=== PATIENT | female | born 1930 | race Caucasian/White ===

== ENCOUNTER 2017-04-28 20:51 | Emergency (ER) | payer MEDICARE, MEDICAID ==
[2014-07-16 12:35] VITALS: Ht 152.4 cm; Wt 92.6 kg
[~2017-04-28] VITALS: Ht 152.4 cm; Wt 92.6 kg
[~2017-04-28 20:51] MED LIST: ABILIF5PT PO; ACE500 PO; ALB17R INH; ALB6.7R INH; AMO500 PO; ASPI-1441 PO; ASPI-715 PO; B 12; BENICAR; BENZ200C38 PO; BUM2 PO; CALC-614 PO; CARBIDOPA PO; CARVEDILOL PO; CEF300 PO; CEFU250 PO; CITA-141 PO; CITA10SO7 PO; CLA500 PO; COM14R INH; CYA1000 PO; DILCD120 PO; DOC100 PO; ENO100I SC; EZET1TAB55 PO; EZET1TAB64 PO; FER325 PO; FLEC50TA PO; FOSI20TA57 PO; FUR40 PO; Furosemide PO; GUAI177L6 PO; GUALA600 PO; GUIDMUD PO; HCTZ25 PO; HYD5L PO; HYDR-4309 PO; HYDR28.425 TOP; HYDR473S4 PO; IBAN150T6 PO; KETO5DRO71 OP; LEVO50 PO; LEVO50TA80 PO; LEVODOPA PO; LORA-629 PO; Lisinopril PO; MET50 PO; METO-1 PO; MULT1CAP59 PO; NEB5 PO; NIFE60TA76 PO; NYSP TOP; OCU PO; OLME1TAB54 PO; OMEP-125 PO; OND4 PO; ONDA4TAB PO; ONDA8TAB94 PO; ONE A DAY VIT PO; OXYGEN INH; OXYM15MI14 ENA; PAN40 PO; POT20 PO; POTA10CA61 PO; POTA20TA85 PO; RIV10 PO; RIVA20TA PO; SUCR1TAB51 PO; SYSTANE ULTRA; SYSTANODPT OP; TRA50 PO; TRAM100T22 PO; VALS320T12 PO; VIT-9 PO; VIT1CAPS32 PO; VIT1CAPS39 PO; VITA-197 PO; WAR5 PO; WARF-18 PO; WARF10TA29 PO; WARF2TAB81 PO; WARF3TAB36 PO; WARF4TAB47 PO; ZADITOR
[2017-04-28 21:03] VITALS: BP 148/77
--- NOTE | 2017-04-28 21:03 | ER Report ---
History and Physical Time Seen By MD: 21:00 HPI/ROS CHIEF COMPLAINT: Right arm redness HISTORY OF PRESENT ILLNESS: 86-year-old female presents ambulatory to the ER complaining of burning pain in the lateral aspect of her right elbow. Patient notes there is a red rash since developed over the last 2-3 days. There are some vesicles noted in the area of this. Patient describes a burning pain. She 's had no fever or chills. She is unsure whether she is receive the zoster vaccine. Patient recalls no injury or open wounds. Patient describes a burning pain. She notes some itching. Allergies: Coded Allergies: milk (Verified Allergy, Intermediate, UPSET STOMACH, 04/28/17) codeine (Verified Adverse Reaction, Intermediate, MADE HER CONFUSED, WEAK POOR BALANCE, 04/28/17) Home Meds Active Scripts Cephalexin 500 Mg Tab (KEFLEX 500 MG TAB) 500 Mg Tablet, 500 MG PO TID for treatment of cellulitis, #20 TAB Prov:EVERETT AYON DO 04/28/17 Valacyclovir Hcl (VALTREX) 1,000 Mg Tablet, 1000 MG PO BID for treatment of shingles, #14 Prov:EVERETT AYON DO 04/28/17 Hydrocortisone (Hydrocortisone) 1 % Cream..g., 1 DAJUAN TOP BID, #1 TUBE Prov:BRITTANY PFEIFFER CASE PICKER 06/21/16 [Furosemide] 40 MG TAB No Conflict Check, 40 MG PO QDAY, #30 TAB Prov:IRVIN KELLEY DO 07/21/14 Reported Medications Aripiprazole (ABILIFY) 5 Mg Tablet, 5 MG PO QDAY, #10 TAB 04/28/17 Potassium Chloride (KLOR-CON) 20 Meq Packet, 20 MEQ PO QDAY, PACKET 04/28/17 Diltiazem Hcl (TAZTIA XT) 120 Mg Capsule.er, 120 MG PO 04/28/17 Loratadine (CLARITIN) 10 Mg Capsule, 10 MG PO, CAPSULE 04/28/17 Citalopram Hydrobromide (CITALOPRAM HBR) 40 Mg Tablet, 40 MG PO QDAY, #5 TAB TAKE 1 TABLET BY MOUTH EVERY DAY 07/15/14 Sucralfate (SUCRALFATE) 1 Gm Tablet, 1 GM PO BID 02/23/14 Cyanocobalamin (Vitamin B-12) (VITAMIN B-12) 1,000 Mcg Tablet, 1000 MCG PO DAILY 02/23/14 Omeprazole (OMEPRAZOLE) 20 Mg Capsule.dr, 1 CAP PO QDAY TAKE ONE CAPSULE BY MOUTH ONCE A DAY 02/23/14 Oxygen (Oxygen) 2 L Inha, 4 L INH CONTINUOUSLY, 0 Refills 04/05/11 Metoprolol Tartrate (Lopressor) 50 Mg Tablet, 50 MG PO BID, 0 Refills 04/05/11 Levothyroxine Sodium (Levothyroxine Sodium) 50 Mcg Tablet, 50 MCG PO DAILY, 0 Refills DO NOT TAKE THIS MEDICATION WITHIN 4 HOURS OF FERROUS SULFATE 04/05/11 Ferrous Sulfate (Ferrous Sulfate) 325 Mg Tab, 325 MG PO BIDBS, [address] ONE DROP IN EACH EYE DAILY 04/05/11 Aspirin (Aspirin) 81 Mg Tablet.dr, 81 MG PO DAILY, 0 Refills 04/05/11 Discontinued Reported Medications Rivaroxaban (XARELTO 10 MG TAB (OR EQUIV)) 10 Mg Tablet, 15 MG PO QPM, TAB 06/21/16 Vit C/[place] Ac/Lut/Copper/Znox (PRESERVISION LUTEIN SOFTGEL) 1 Each Capsule, 1 EACH PO DAILY, CAPSULE 02/23/14 Acetaminophen (Tylenol) 500 Mg Tab, 650 MG PO Q6H, 0 Refills TAKE NEEDED FOR PAIN 04/05/11 Albuterol/Ipratropium (Combivent) 14.7 Gm Inh, 2 PUFF INH QID, 0 Refills 1-2 PUFFS 04/05/11 Discontinued Scripts Oxymetazoline Hcl (AFRIN) 15 Ml Mist, 2 SPRAYS [place]O BID Y for nosebleed, #1 BOTTLE Prov:BRITTANY PFEIFFER NP 06/21/16 [Levodopa/Carbidopa] 1 EACH TAB No Conflict Check, 1 EACH PO TID, #90 TAB Prov:IRVIN KELLEY DO 07/21/14 [Lisinopril] 5 MG TAB No Conflict Check, 5 MG PO QDAY, #30 TAB Prov:IRVIN KELLEY DO 07/21/14 Past Medical/Surgical History Past medical history: Macular degeneration, wears glasses, hard of hearing, pacemaker, DVT, frequent pneumonia, hypoxia on 2 L at night. History of H. pylori, arthritis. Past surgical history bilateral cataract extraction, pacemaker placement,: Heart repaired, history of spitting at age 25. Bone spur removal, carpal tunnel surgery bilaterally, fractured left ankle Reviewed Nurses Notes: Yes Old Medical Records Reviewed: Yes Hx Smoking: No Smoking Status: Never Smoker Exposure to Second Hand Smoke?: No Hx Substance Use Disorder: No Hx Alcohol Use: No Constitutional Vital Sign - Last 24 Hours 04/28/17 21:03 Temp 97.8 Pulse 59 Resp 16 B/P (MAP) 148/77 Pulse Ox 98 O2 Delivery Nasal Cannula Physical Exam General appearance: Mild distress Respiratory: Chest is non tender, lungs are clear to auscultation. Cardiac: Regular rate and rhythm Extremities: Examination of the right arm reveals a very large erythematous area , approximate 1070 years by 5 cm just lateral to the antecubital area on her right arm. There are some small vesicles that are scabbed over, which would suggest herpes zoster, distal neurovascular function intact DIFFERENTIAL DIAGNOSIS: After history and physical exam differential diagnosis was considered for cellulitis, herpes zoster, contact dermatitis, eczema. Eczema Medical Decision Making ED Course/Re-evaluation ED Course Patient was admitted to an examination room. H&P was done. The differential diagnoses was considered. Patient with a grossly erythematous area right lateral elbow region. There are some vesicles in the area. It appears to be in a dermatomal distribution consistent with herpes zoster. There could be a secondary bacterial cellulitis. Patient be treated with Valtrex and Keflex. She is offered medication for pain, but declines. She describes a burning pain which would go with herpes zoster. She is advised to apply heating pad to the affected area. Patient advised to follow-up with primary care if unimproved in 3-5 days. Decision to Disposition Date: Apr 28, 2017 Decision to Disposition Time: 21:25 Depart Departure Latest Vital Signs Vital Signs Date Time Temp Pulse Resp B/P (MAP) Pulse Ox O2 Delivery O2 Flow Rate FiO2 04/28/17 21:03 97.8 59 16 148/77 98 Nasal Cannula Impression: Primary Impression: Herpes zoster Additional Impression: Cellulitis of right arm Condition: Improved Disposition: HOME OR SELF-CARE Referrals: IRVIN CRANE MD (PCP) New Scripts Cephalexin 500 Mg Tab (KEFLEX 500 MG TAB) 500 Mg Tablet 500 MG PO TID for treatment of cellulitis, #20 TAB Prov: EVERETT AYON DO 04/28/17 Valacyclovir Hcl (VALTREX) 1,000 Mg Tablet 1000 MG PO BID for treatment of shingles, #14 Prov: EVERETT AYON DO 04/28/17 Patient Instructions: Cellulitis (ED), Shingles (ED) Additional Instructions: Apply hot compresses or heating pad to your right arm Take ibuprofen as needed for pain relief Follow-up with your primary care if unimproved. On Sunday Problem Qualifiers Primary Impression: Herpes zoster Herpes zoster complications: without complications Qualified Codes: B02.9 - Zoster without complications EVERETT AYON DO Apr 28, 2017 21:03
[2017-04-28] MEDS ORDERED: oxyCODONE/ACETAMIN 5/325MG TH 2 TAB/BOTTLE PO ONE (21:20)
[2017-04-28] MEDS ORDERED: valACYclovir HCL 500 MG TAB PO ONE (21:20)
[2017-04-28] MEDS ORDERED: CEPHALEXIN MONO 500 MG CAP PO ONE (21:20)
[2017-04-28] MEDS ORDERED: LORA10CA3 PO (21:23)
[2017-04-28] MEDS ORDERED: DILT-109 PO (21:24)
[2017-04-28] MEDS ORDERED: POTA20PA10 PO (21:27)
[2017-04-28] MEDS ORDERED: CEPH500T7 PO (21:33)
[2017-04-28] MEDS ORDERED: VALA100062 PO (21:33)
[2017-04-28] MEDS ORDERED: ABILIF5PT PO (21:55)
== END 2017-04-28 21:45 | disposition home or self-care (01) ==
LOC: ER 21:01
DX: B02.9 Zoster without complications (principal); L03.113 Cellulitis of right upper limb
CPT/HCPCS: 99282; A9270

== ENCOUNTER 2017-06-03 17:43 | Emergency (ER) | payer MEDICARE, MEDICAID ==
[2014-07-16 12:35] VITALS: Ht 152.4 cm; Wt 92.6 kg
[~2017-06-03] VITALS: Ht 152.4 cm; Wt 92.6 kg
[~2017-06-03 17:43] MED LIST changes: -CARB-94 PO; -RIVA15TA PO; -TRAM-420 PO; +WARF-18 PO; -WARF5TAB23 PO
--- NOTE | 2017-06-03 18:10 | ER Report ---
History and Physical Time Seen By MD: 18:09 Hx. of Stated Complaint: L side chest and neck pain, can hardly touch herself" a little sob, nausea, dizzy starting at noon today HPI/ROS CHIEF COMPLAINT: Left neck, chest, shoulder pain HISTORY OF PRESENT ILLNESS: 86-year-old female patient presents to emergency room with complaint of left neck, chest and shoulder pain. Patient states that the pain started yesterday. She states that she's had no shortness of breath, she denies having any nausea, vomiting or diarrhea. Patient states that she has not taken any medication for this. She states that she does have a history of heart disease last time she had something similar to this she was instructed by her stationary engineer refrigeration come in for evaluation. She states that she did have some improvement with aspirin and nitroglycerin. Patient states that the day prior to yesterday she woke up and she was falling out of bed. She states she does have bruises to the right hip. She states that she did wake up and was able to catch herself and help break her fall. REVIEW OF SYSTEMS: Respiratory: No cough, no dyspnea. Cardiovascular: As noted above Gastrointestinal: No vomiting, no abdominal pain. Musculoskeletal: As noted above Allergies: Coded Allergies: milk (Verified Allergy, Intermediate, UPSET STOMACH, 04/28/17) codeine (Verified Adverse Reaction, Intermediate, MADE HER CONFUSED, WEAK POOR BALANCE, 04/28/17) Home Meds Active Scripts Tramadol Hcl (TRAMADOL HCL) 50 Mg Tablet, 50 MG PO Q4-6H, #10 TAB Prov:VIVIANA WHITTEN 06/03/17 Hydrocortisone (Hydrocortisone) 1 % Cream..g., 1 DAJUAN TOP BID, #1 TUBE Prov:BRITTANY PFEIFFER MEDART OPERATOR 06/21/16 [Furosemide] 40 MG TAB No Conflict Check, 40 MG PO QDAY, #30 TAB Prov:IRVIN KELLEY DO 07/21/14 Reported Medications Carbidopa/Levodopa (CARBIDOPA-LEVODOPA 25-100 TAB) 1 Each Tablet, 1 EACH PO TID 06/03/17 Rivaroxaban 15 Mg (XARELTO 15 MG) 15 Mg Tablet, 15 MG PO, TAB 06/03/17 Potassium Chloride (KLOR-CON) 20 Meq Packet, 20 MEQ PO BID, PACKET 06/03/17 Aripiprazole (ABILIFY) 5 Mg Tablet, 5 MG PO QDAY, #10 TAB 04/28/17 Diltiazem Hcl (TAZTIA XT) 120 Mg Capsule.er, 120 MG PO 04/28/17 Citalopram Hydrobromide (CITALOPRAM HBR) 40 Mg Tablet, 40 MG PO QDAY, #5 TAB TAKE 1 TABLET BY MOUTH EVERY DAY 07/15/14 Sucralfate (SUCRALFATE) 1 Gm Tablet, 1 GM PO BID 02/23/14 Cyanocobalamin (Vitamin B-12) (VITAMIN B-12) 1,000 Mcg Tablet, 1000 MCG PO DAILY 02/23/14 Omeprazole (OMEPRAZOLE) 20 Mg Capsule.dr, 1 CAP PO QDAY TAKE ONE CAPSULE BY MOUTH ONCE A DAY 02/23/14 Oxygen (Oxygen) 2 L Inha, 4 L INH CONTINUOUSLY, 0 Refills 04/05/11 Metoprolol Tartrate (Lopressor) 50 Mg Tablet, 50 MG PO BID, 0 Refills 04/05/11 Levothyroxine Sodium (Levothyroxine Sodium) 50 Mcg Tablet, 50 MCG PO DAILY, 0 Refills DO NOT TAKE THIS MEDICATION WITHIN 4 HOURS OF FERROUS SULFATE 04/05/11 Ferrous Sulfate (Ferrous Sulfate) 325 Mg Tab, 325 MG PO BIDBS, [address] ONE DROP IN EACH EYE DAILY 04/05/11 Aspirin (Aspirin) 81 Mg Tablet.dr, 81 MG PO DAILY, 0 Refills 04/05/11 Discontinued Reported Medications Potassium Chloride (KLOR-CON) 20 Meq Packet, 20 MEQ PO QDAY, PACKET 04/28/17 Loratadine (CLARITIN) 10 Mg Capsule, 10 MG PO, CAPSULE 04/28/17 Discontinued Scripts Cephalexin 500 Mg Tab (KEFLEX 500 MG TAB) 500 Mg Tablet, 500 MG PO TID for treatment of cellulitis, #20 TAB Prov:EVERETT AYON DO 04/28/17 Valacyclovir Hcl (VALTREX) 1,000 Mg Tablet, 1000 MG PO BID for treatment of shingles, #14 Prov:EVERETT AYON DO 04/28/17 Past Medical/Surgical History Patient has a past medical history of seizures, angina, irregular heartbeat, CHF , DVT, hypertension, pneumonia, H. pylori, cholecystitis, liver disease, arthritis, ankle fracture, macular degeneration, hypothyroidism, anticoagulant therapy, depression. Patient has a surgical history of cholecystectomy, pacemaker placement,: Heart repaired, appendectomy, hysterectomy, pulse removed, carpal tunnel release bilaterally, bilateral cataract surgery. Patient has a family medical history of cancer, stroke, diabetes. Reviewed Nurses Notes: Yes Hx Smoking: No Smoking Status: Never Smoker Exposure to Second Hand Smoke?: No Hx Substance Use Disorder: No Hx Alcohol Use: No Constitutional Vital Sign - Last 24 Hours 06/03/17 06/03/17 06/03/17 06/03/17 17:43 17:45 17:45 17:58 Temp 99.0 Pulse ??? 63 66 Resp 20 17 B/P (MAP) 119/71 119/71 (87) Pulse Ox 94 96 O2 Delivery Nasal Cannula 06/03/17 06/03/17 06/03/17 06/03/17 18:00 18:13 18:20 18:20 Pulse 59 Resp 15 B/P (MAP) 122/71 (88) 113/77 (89) Pulse Ox 95 O2 Flow Rate 4.0 06/03/17 06/03/17 06/03/17 18:28 18:40 18:43 Pulse 60 58 Resp 11 14 B/P (MAP) 134/86 (102) Pulse Ox 93 93 Physical Exam General Appearance: The patient is alert, has no immediate need for airway protection and no current signs of toxicity. Respiratory: Chest is tender along the upper chest, trapezius muscles., lungs are clear to auscultation. Cardiac: regular rate and rhythm Gastrointestinal: Abdomen is soft and non tender, no masses, bowel sounds normal. Musculoskeletal: Neck: Neck is supple and non tender. Extremities have full range of motion and are non tender. Skin: No rashes or lesions. DIFFERENTIAL DIAGNOSIS: After history and physical exam differential diagnosis was considered for chest pain including but not limited to myocardial ischemia, pericarditis pulmonary embolus, chest wall pain, pleural inflammation and pulmonary infectious causes. Included differential is a shoulder strain secondary to try to catch herself from falling out of bed. Medical Decision Making Data Points Result Diagram: 06/03/17191006/03/171910 Laboratory Hematology Test 06/03/17 18:25 06/03/17 19:11 Influenza Virus Type A (PCR) Negative (NEGATIVE) Influenza Virus Type B (PCR) Negative (NEGATIVE) Red Blood Count 3.23 M/uL (4.17-5.56) Mean Corpuscular Volume 106.5 fL (80.0-96.0) Mean Corpuscular Hemoglobin 36.9 pg (26.0-33.0) Mean Corpuscular Hemoglobin Concent 34.6 g/dL (32.0-36.0) Red Cell Distribution Width 13.3 % (11.5-14.5) Mean Platelet Volume 8.7 fL (7.2-11.1) Neutrophils (%) (Auto) 67.0 % (39.4-72.5) Lymphocytes (%) (Auto) 18.8 % (17.6-49.6) Monocytes (%) (Auto) 12.6 % (4.1-12.4) Eosinophils (%) (Auto) 1.0 % (0.4-6.7) Basophils (%) (Auto) 0.6 % (0.3-1.4) Nucleated RBC Relative Count (auto) 0.0 /100WBC Neutrophils # (Auto) 6.3 K/uL (2.0-7.4) Lymphocytes # (Auto) 1.8 K/uL (1.3-3.6) Monocytes # (Auto) 1.2 K/uL (0.3-1.0) Eosinophils # (Auto) 0.1 K/uL (0.0-0.5) Basophils # (Auto) 0.1 K/uL (0.0-0.1) Nucleated RBC Absolute Count (auto) 0.00 K/uL Sodium Level 138 mmol/L (137-145) Potassium Level 4.2 mmol/L (3.5-5.0) Chloride Level 99 mmol/L (98-107) Carbon Dioxide Level 29 mmol/L (22-31) Blood Urea Nitrogen 20 mg/dl (7-18) Creatinine 1.10 mg/dl (0.52-1.04) Glomerular Filtration Rate Calc 47.0 Random Glucose 90 mg/dl (75-110) Calcium Level 8.6 mg/dl (8.4-10.2) Total Bilirubin 0.4 mg/dl (0.2-1.3) Aspartate Amino Transf (AST/SGOT) 22 U/L (0-35) Alanine Aminotransferase (ALT/SGPT) 21 U/L (0-56) Alkaline Phosphatase 102 U/L (0-126) Troponin I < 0.012 ng/ml B-Type Natriuretic Peptide 539 pg/ml (0-100) Total Protein 8.0 gm/dl (6.3-8.2) Albumin 3.9 g/dl (3.5-5.0) Chemistry Test 06/03/17 18:25 06/03/17 19:11 Influenza Virus Type A (PCR) Negative (NEGATIVE) Influenza Virus Type B (PCR) Negative (NEGATIVE) White Blood Count 9.4 k/uL (4.5-11.0) Red Blood Count 3.23 M/uL (4.17-5.56) Hemoglobin 11.9 g/dL (12.0-16.0) Hematocrit 34.4 % (34.0-47.0) Mean Corpuscular Volume 106.5 fL (80.0-96.0) Mean Corpuscular Hemoglobin 36.9 pg (26.0-33.0) Mean Corpuscular Hemoglobin Concent 34.6 g/dL (32.0-36.0) Red Cell Distribution Width 13.3 % (11.5-14.5) Platelet Count 170 K/uL (150-450) Mean Platelet Volume 8.7 fL (7.2-11.1) Neutrophils (%) (Auto) 67.0 % (39.4-72.5) Lymphocytes (%) (Auto) 18.8 % (17.6-49.6) Monocytes (%) (Auto) 12.6 % (4.1-12.4) Eosinophils (%) (Auto) 1.0 % (0.4-6.7) Basophils (%) (Auto) 0.6 % (0.3-1.4) Nucleated RBC Relative Count (auto) 0.0 /100WBC Neutrophils # (Auto) 6.3 K/uL (2.0-7.4) Lymphocytes # (Auto) 1.8 K/uL (1.3-3.6) Monocytes # (Auto) 1.2 K/uL (0.3-1.0) Eosinophils # (Auto) 0.1 K/uL (0.0-0.5) Basophils # (Auto) 0.1 K/uL (0.0-0.1) Nucleated RBC Absolute Count (auto) 0.00 K/uL Glomerular Filtration Rate Calc 47.0 Calcium Level 8.6 mg/dl (8.4-10.2) Total Bilirubin 0.4 mg/dl (0.2-1.3) Aspartate Amino Transf (AST/SGOT) 22 U/L (0-35) Alanine Aminotransferase (ALT/SGPT) 21 U/L (0-56) Alkaline Phosphatase 102 U/L (0-126) Troponin I < 0.012 ng/ml B-Type Natriuretic Peptide 539 pg/ml (0-100) Total Protein 8.0 gm/dl (6.3-8.2) Albumin 3.9 g/dl (3.5-5.0) EKG/Imaging EKG Interpretation 12 lead EKG: Rhythm: normal sinus rhythm with a ventricular rate of 62 bpm [place]: Left axis deviation QRS: normal ST segments: Nonspecific T-wave abnormality Imaging CHEST: Indication: Chest pain. Technique: Frontal and lateral views were obtained. 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 No acute skeletal deformity is identified. Heart and mediastinum: Stable, allowing for differences in inspiratory effort. The cardiac pacemaker leads appear unchanged. Lung saldivar: Hypoexpanded. There is chronic linear fibrotic opacity at the left base. No acute parenchymal process is identified. There are no signs of vascular congestion. Pleural spaces: No evidence of effusion or pneumothorax. Impression: No acute interval change. Report Dictated By: Rush Butler MD at 06/03/2017 8:03 PM Report E-Signed By: Rush Butler MD at 06/03/2017 8:10 PM ED Course/Re-evaluation ED Course Patient was admitted to exam room, history and physical were obtained. Differential diagnoses were considered. On examination patient had tenderness to the left trapezius, left side of the neck, left upper chest. A CBC, CMP, troponin, EKG, chest x-ray, BNP were done. Lab results were unremarkable, troponin was negative, EKG showed a normal sinus rhythm with left axis deviation , chest x-ray was normal. BNP was slightly elevated at 500. Patient is taking her Lasix. We'll go ahead and hold off and have her continue with her Lasix. I would like her follow-up with primary care provider in the next week. I discussed the findings of the x-ray and the lab tests. I believe that the pain is likely related to the muscles of the shoulder neck. We will go ahead and discharge patient home. She will be given a limited supply of tramadol. She is given a dose tonight. She is return to the emergency room with any worsening of her condition. The patient and her family verbalized understanding and agreement with plan. Decision to Disposition Date: Jun 03, 2017 Decision to Disposition Time: 20:28 Depart Departure Latest Vital Signs Vital Signs Date Time Temp Pulse Resp B/P (MAP) Pulse Ox O2 Delivery O2 Flow Rate FiO2 06/03/17 18:43 58 14 93 06/03/17 18:40 134/86 (102) 06/03/17 18:20 4.0 06/03/17 17:45 99.0 Nasal Cannula Impression: Primary Impression: Chest pain Condition: Improved Disposition: HOME OR SELF-CARE Referrals: IRVIN CRANE MD (PCP) New Scripts Tramadol Hcl (TRAMADOL HCL) 50 Mg Tablet 50 MG PO Q4-6H, #10 TAB Prov: VIVIANA WHITTEN 06/03/17 Patient Instructions: Chest Wall Pain (ED) Additional Instructions: Limit activity by pain. You may apply a heating pad to the shoulder and neck. Take the medication as needed for pain. Follow up with your primary care provider in the next week. Return to the ER if condition worsens. You may take Tylenol as needed for pain as well. Problem Qualifiers Primary Impression: Chest pain Chest pain type: other chest pain Qualified Codes: R07.89 - Other chest pain VIVIANA WHITTEN Jun 03, 2017 18:10
--- NOTE | 2017-06-03 18:59 | EKG ---
FACILITY: [facility] - [place] PATIENT NAME: BRIGIDA LOWERY : [id number] MR: [id number] V: [id number] EXAM DATE: ORDERING PHYSICIAN: VIVIANA WHITTEN TECHNOLOGIST: ALEXX Test Reason : CP Blood Pressure : / mmHG Vent. Rate : 062 BPM Atrial Rate : 062 BPM P-R Int : 194 ms QRS Dur : 098 ms QT Int : 446 ms P-R-T Axes : 059 -30 076 degrees QTc Int : 452 ms Normal sinus rhythm Left axis deviation T inversion consistent with septal ischemia vs normal variant When compared with ECG of 08-SEP-2014 20:10, Sinus rhythm has replaced a ventricular paced rhythm Confirmed by ANIL MANCIA ([id number]) on 06/03/2017 9:01:12 PM Referred By: KEON Confirmed By:ANIL MANCIA
[2017-06-03 19:16] LABS: PLATELET COUNT, AUTOMATED 170 K/uL (150-450)
[2017-06-03] MEDS ORDERED: POTA20PA10 PO (19:35)
[2017-06-03] MEDS ORDERED: RIVA15TA PO (19:37)
[2017-06-03] MEDS ORDERED: CARB-94 PO (19:38)
--- NOTE | 2017-06-03 20:14 | RADIOLOGY IMAGING REPORT ---
FACILITY: [facility] - [place] PATIENT NAME: Sangeeta Esparza : 1930 MR: [id number] V: [id number] EXAM DATE: ORDERING PHYSICIAN: VIVIANA WHITTEN TECHNOLOGIST: Location: [facility] Patient: Sangeeta Esparza : 1930 Visit/Account:[id number] Date of Sevice: 06/03/2017 CHEST: Indication: Chest pain. Technique: Frontal and lateral views were obtained. 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 No acute skeletal deformity is identified. Heart and mediastinum: Stable, allowing for differences in inspiratory effort. The cardiac pacemaker leads appear unchanged. Lung saldivar: Hypoexpanded. There is chronic linear fibrotic opacity at the left base. No acute parenc hymal process is identified. There are no signs of vascular congestion. Pleural spaces: No evidence of effusion or pneumothorax. Impression: No acute interval change. Report Dictated By: Rush Butler MD at 06/03/2017 8:03 PM Report E-Signed By: Rush Butler MD at 06/03/2017 8:10 PM WSN:[id number]
[2017-06-03] MEDS ORDERED: traMADol 50 MG TAB PO ONE (20:15)
[2017-06-03] MEDS ORDERED: TRAM-420 PO (20:29)
[2017-06-03 20:40] VITALS: BP 131/75
== END 2017-06-03 20:58 | disposition home or self-care (01) ==
LOC: ER 17:50
DX: R07.89 Other chest pain (principal)
CPT/HCPCS: 71046; 83880; 84484; 85025; 87502; 93005; 99284; A9270; 82040; 82247; 82310; 82374; 82435; 82565; 82947; 84075; 84132; 84155; 84295; 84450; 84460; 84520

== ENCOUNTER → 2017-06-03 | Outpatient (CLI) | payer MEDICARE, MEDICAID ==
[2014-07-16 12:35] VITALS: BMI 41.7
[~2017-06-03] MED LIST changes: +CARB-94 PO; +CEPH500T7 PO; +DILT-109 PO; +LORA10CA3 PO; +POTA20PA10 PO; +RIVA15TA PO; +TRAM-420 PO; +VALA100062 PO; -WARF-18 PO; +WARF5TAB23 PO
== END ==
LOC: AMB 17:24
PROVIDERS: ATTEND Nurse Practitioner
DX: R07.9 Chest pain, unspecified (principal); M54.2 Cervicalgia; M79.602 Pain in left arm
CPT/HCPCS: A0425; A0427

== ENCOUNTER → 2017-09-13 | Outpatient (CLI) | payer MEDICARE, MEDICAID ==
[2014-07-16 12:35] VITALS: BMI 41.7
[~2017-09-13] MED LIST changes: +ASCO-246 PO; +CARB-94 PO; +CITA-145 PO; +FERR142T2 PO; +FERR325T24 PO; +FURO-47 PO; +LISI5TAB25 PO; +OXYGENHOME INH; +POTA20TA94 PO; +RANI-318 PO; +RIVA15TA PO; +TRAM-420 PO; +TRIA15CR40 TP; +VIT1CAPS34 PO; -WARF-18 PO; +WARF2TAB13 PO; -WARF2TAB81 PO; +WARF5TAB23 PO
[2017-09-13 11:01] LABS: PLATELET COUNT, AUTOMATED 216 K/uL (150-450)
== END ==
LOC: LAB 10:07
PROVIDERS: ATTEND Family Medicine
DX: E53.8 Deficiency of other specified B group vitamins (principal); I10 Essential (primary) hypertension; E61.1 Iron deficiency; E03.9 Hypothyroidism, unspecified
CPT/HCPCS: 36415; 82040; 82247; 82310; 82374; 82435; 82565; 82607; 82728; 82947; 84075; 84132; 84155; 84295; 84443; 84450; 84460; 84520; 85025

== ENCOUNTER 2017-09-30 18:51 | Observation (INO) | payer MEDICARE, MEDICAID ==
[~2017-09-30] VITALS: Ht 152.4 cm; Wt 87.2 kg
[~2017-09-30 18:51] MED LIST changes: -DICL100G39 TP; -METO-253 PO
--- NOTE | 2017-09-30 18:59 | ER Report ---
History and Physical Time Seen By MD: 18:54 HPI/ROS CHIEF COMPLAINT: Back pain HISTORY OF PRESENT ILLNESS: 87-year-old female brought in by EMS from home complaining of back pain. Patient required Zofran and 50 g of fentanyl IV prior to transfer. On arrival. She appears comfortable. She's complaining of severe lower back pain with radiation to her right lower extremity. Patient notes no incontinence. She states she fell 4 weeks ago. She notes no fever, chills or dysuria. She was seen by her primary care physician Dr Jenkins, a few days ago. Her medical history is reviewed in that note. She lives with her son who sleeps in the basement. Patient denies chest pain or shortness of breath. Patient denies recent illness. REVIEW OF SYSTEMS: Respiratory: No cough, no dyspnea. Cardiovascular: No chest pain, no palpitations. Gastrointestinal: No vomiting, no abdominal pain. Musculoskeletal: As above Allergies: Coded Allergies: milk (Verified Allergy, Intermediate, UPSET STOMACH, 04/28/17) codeine (Verified Adverse Reaction, Intermediate, MADE HER CONFUSED, WEAK POOR BALANCE, 04/28/17) Home Meds Active Scripts Triamcinolone Acetonide 0.1% Cr 15 Gm Tube (TRIAMCINOLONE ACETONIDE 0.1% CREAM) 15 Gm Cream..g., 1 DAJUAN TP BID Y for RASH for 14 Days, #1 TUBE Prov:FREDI JENKINS MD 09/27/17 Carbidopa/Levodopa (CARBIDOPA-LEVODOPA 25-100 TAB) 1 Each Tablet, 1 EACH PO BID for 90 Days, #270 TAB Prov:FREDI JENKINS MD 09/27/17 Lisinopril (LISINOPRIL) 5 Mg Tablet, 1 TAB PO DAILY for 90 Days, #90 TAB 4 Refills Prov:FREDI JENKINS MD 09/25/17 Furosemide (FUROSEMIDE) 40 Mg Tablet, 1 TAB PO BID for 90 Days, #180 TAB Prov:FREDI JENKINS MD 09/25/17 Ranitidine Hcl (RANITIDINE HCL) 150 Mg Tablet, 150 MG PO QHS for 90 Days, #90 TAB 3 Refills Prov:FREDI JENKINS MD 09/13/17 Citalopram Hydrobromide (CITALOPRAM HBR) 20 Mg Tablet, 20 MG PO QDAY for 90 Days , #90 TAB 3 Refills Prov:FREDI JENKINS MD 09/13/17 Reported Medications Ferrous Sulfate (IRON) 325 Mg Tablet, 1 TAB PO DAILY 09/13/17 Potassium Chloride (POTASSIUM CHLORIDE) 20 Meq Tab.er.prt, 1 TAB PO BID 09/13/17 Ascorbic Acid (VITAMIN C WITH BETO HIPS) 500 Mg Tablet, 1 TAB PO DAILY 08/31/17 Vit A/Vit C/Vit E/Zinc/Copper (PRESERVISION AREDS SOFTGEL) 1 Each Capsule, 1 EACH PO BID, CAPSULE 08/31/17 Oxygen (OXYGEN) Inha, 4 L INH DAILY, L Continuous 08/31/17 Rivaroxaban 15 Mg (XARELTO 15 MG) 15 Mg Tablet, 1 TAB PO QPM 06/03/17 Metoprolol Tartrate (Lopressor) 50 Mg Tablet, 1 TAB PO BID 04/05/11 Levothyroxine Sodium (Levothyroxine Sodium) 50 Mcg Tablet, 1 TAB PO DAILY, 0 Refills DO NOT TAKE THIS MEDICATION WITHIN 4 HOURS OF FERROUS SULFATE 04/05/11 Past Medical/Surgical History Past Medical History Reviewed: Yes Neurologic: Reports hx of: parkinson's disease Cardiovascular: Reports hx of: atrial fibrillation CHF hypertension other CV history (Pacemaker) Respiratory: Reports hx of: sleep apnea other respiratory history (Chor Pulm) Psychiatric: Reports hx of: depression Cardiovascular: Reports hx of: pacemaker Gastrointestinal: Reports hx of: cholecystectomy Gynecologic: Reports hx of: hysterectomy Musculoskeletal: Reports hx of: carpal tunnel release Reviewed Nurses Notes: Yes Old Medical Records Reviewed: Yes Constitutional Vital Sign - Last 24 Hours 09/30/17 09/30/17 09/30/17 09/30/17 18:59 19:00 19:15 19:17 Temp 97.7 Pulse 89 85 104 Resp 20 B/P (MAP) 115/76 126/74 (91) Pulse Ox 95 98 98 O2 Delivery Nasal Cannula O2 Flow Rate 4.0 09/30/17 09/30/17 09/30/17 09/30/17 19:30 19:45 20:00 20:15 Pulse 100 86 ??? 87 B/P (MAP) ???/??? (1665) ???/??? (1664) Pulse Ox 96 98 100 09/30/17 09/30/17 09/30/17 09/30/17 20:29 20:45 21:00 21:15 Pulse 95 81 ??? Resp 12 21 B/P (MAP) 130/82 (98) 137/76 (96) Pulse Ox 98 98 09/30/17 09/30/17 09/30/17 09/30/17 21:30 21:45 22:00 22:15 Pulse 81 79 85 ??? B/P (MAP) ???/??? (1665) Pulse Ox 100 99 100 09/30/17 09/30/17 09/30/17 09/30/17 22:30 22:45 23:00 23:15 Pulse ? 92 85 Resp 21 11 13 Pulse Ox 93 83 94 09/30/17 09/30/17 23:30 23:45 Pulse ??? 83 Pulse Ox 99 Physical Exam General Appearance: The patient is alert, has no immediate need for airway protection and no current signs of toxicity.. Vital signs stable, afebrile, pulse ox baseline HEENT: Pupils equal and round no injection. Oropharynx no redness or exudate, mucous. Membranes are moist Respiratory: Chest is non tender, lungs are clear to auscultation. Cardiac: irregularregular rate and rhythm, Gastrointestinal: Abdomen is soft and non tender, no masses, bowel sounds normal. Musculoskeletal: Neck: Neck is supple and non tender. Back: Mild tenderness in the right lumbar paraspinous muscles in the SI joint Extremities have full range of motion and are non tender. Negative straight- leg raise bilaterally, patient can lift both of her legs without difficulty by herself Skin: No rashes or lesions. DIFFERENTIAL DIAGNOSIS: After history and physical exam differential diagnosis was considered for back pain including but not limited to muscular pain, herniated disc, spine fracture, intra-abdominal causes and urinary tract infection. Medical Decision Making Data Points Result Diagram: 10/02/17 0550 10/02/17 0550 Laboratory Hematology Test 09/30/17 19:23 09/30/17 20:34 Erythrocyte Sedimentation Rate 50 mm/HOUR (0-30) Lactate 1.1 mmol/L (0.7-2.1) Troponin I < 0.012 ng/ml C-Reactive Protein < 0.5 mg/dl (<1.0) Amylase Level 59 U/L (0-110) Urine Color Straw Urine Clarity Clear Urine pH 6.0 pH (4.8-9.5) Urine Specific [place] 1.008 Urine Protein Negative mg/dL (NEGATIVE) Urine Glucose (UA) Negative mg/dL (NEGATIVE) Urine Ketones Negative mg/dL (NEGATIVE) Urine Blood Negative (NEGATIVE) Urine Nitrite Negative (NEGATIVE) Urine Bilirubin Negative (NEGATIVE) Urine Urobilinogen Negative mg/dL (0.2-1.9) Urine Leukocyte Esterase Negative (NEGATIVE) Urine RBC <1 /HPF (0-2/HPF) Urine WBC None /HPF (0-5/HPF) Urine Squamous Epithelial Cells None /LPF (NONE-FEW) Urine Bacteria Negative /HPF (NONE-FEW) Urine Hyaline Casts Many /LPF (NONE-FEW) Urine Mucus None /HPF (NONE-FEW) Chemistry Test 09/30/17 19:23 09/30/17 20:34 Erythrocyte Sedimentation Rate 50 mm/HOUR (0-30) Lactate 1.1 mmol/L (0.7-2.1) Troponin I < 0.012 ng/ml C-Reactive Protein < 0.5 mg/dl (<1.0) Amylase Level 59 U/L (0-110) Urine Color Straw Urine Clarity Clear Urine pH 6.0 pH (4.8-9.5) Urine Specific [place] 1.008 Urine Protein Negative mg/dL (NEGATIVE) Urine Glucose (UA) Negative mg/dL (NEGATIVE) Urine Ketones Negative mg/dL (NEGATIVE) Urine Blood Negative (NEGATIVE) Urine Nitrite Negative (NEGATIVE) Urine Bilirubin Negative (NEGATIVE) Urine Urobilinogen Negative mg/dL (0.2-1.9) Urine Leukocyte Esterase Negative (NEGATIVE) Urine RBC <1 /HPF (0-2/HPF) Urine WBC None /HPF (0-5/HPF) Urine Squamous Epithelial Cells None /LPF (NONE-FEW) Urine Bacteria Negative /HPF (NONE-FEW) Urine Hyaline Casts Many /LPF (NONE-FEW) Urine Mucus None /HPF (NONE-FEW) Urinalysis Test 09/30/17 20:34 Urine Color Straw Urine Clarity Clear Urine pH 6.0 pH (4.8-9.5) Urine Specific [place] 1.008 Urine Protein Negative mg/dL (NEGATIVE) Urine Glucose (UA) Negative mg/dL (NEGATIVE) Urine Ketones Negative mg/dL (NEGATIVE) Urine Blood Negative (NEGATIVE) Urine Nitrite Negative (NEGATIVE) Urine Bilirubin Negative (NEGATIVE) Urine Urobilinogen Negative mg/dL (0.2-1.9) Urine Leukocyte Esterase Negative (NEGATIVE) Urine RBC <1 /HPF (0-2/HPF) Urine WBC None /HPF (0-5/HPF) Urine Squamous Epithelial Cells None /LPF (NONE-FEW) Urine Bacteria Negative /HPF (NONE-FEW) Urine Hyaline Casts Many /LPF (NONE-FEW) Urine Mucus None /HPF (NONE-FEW) EKG/Imaging EKG Interpretation 12 lead EK Rhythm: Atrial flutter with variable AV block Pheba: normal QRS: normal ST segments: normal, comparison to previous EKG dated 06/03/17, no significant overall morphologic change, patient was previously in a sinus rhythm , patient with known history of atrial fib/flutter Imaging X-ray: Lumbar spine series was obtained. I viewed the images myself on the PACS system. My interpretation of the images is: EXAMINATION: Lumbar Spine 5 views HISTORY: Back pain. COMPARISON: Chest radiograph to 06/03/2017. FINDINGS: There are 5 lumbar-type vertebral segments. There is mild wedging of the visualized T11, T12, and L1 vertebral bodies. No prior lumbar spine radiographs are available for comparison. These changes however appear to be likely new in comparison to a lateral chest radiograph of . Vertebral body height is maintained at the L2-L5 levels. Normal alignment. Osteopenia, with chronic multilevel degenerative changes. There is severe disc space narrowing at the L4-L5 and L5-S1 interspaces. Disc spaces are otherwise preserved, with mild multilevel degenerative endplate changes. Facet arthropathy along the lower lumbar facet joints bilaterally. Cholecystectomy clips in the right upper abdomen. IMPRESSION: 1. Mild wedging of T11, T12, and L1 is likely new in comparison to a lateral chest radiograph of 06/03/2017. 2. No other acute osseous findings along the lumbar spine. Normal alignment. 2. Osteopenia with chronic multilevel degenerative changes, greatest at L4-L5 and L5-S1 The radiologist interpretation had no clinically significant variation from this interpretation. X-ray: Single view chest x-ray was obtained. I viewed the images myself on the PACS system. My interpretation of the images is: No infiltrate, intact pacemaker. no effusion, comparison to previous film 06/03/17, no significant change. The radiologist interpretation had no clinically significant variation from this interpretation. Results: CT scan of the chest, abdomen, pelvis CTA to rule out aneurysm was obtained. The results of the study are CTA CHEST, ABDOMEN AND PELVIS DATE OF EXAM: 09/30/2017 9:26 PM. INDICATION: Back pain. COMPARISON: Same-day radiographs, CT abdomen and pelvis 12/18/2013. TECHNIQUE: Contrast enhanced chest, abdomen and pelvis CT. The patient received 100 ml of Isovue 370. Sagittal and coronal reconstructions were performed, as well as coronal 3D/MIP reconstructions. One of the following dose optimization techniques was utilized in the performance of this exam: Automated exposure control; adjustment of the mA and/or kV according to the patient's size; or use of an iterative reconstruction technique. Specific details can be referenced in the facility's radiology CT exam operational policy. FINDINGS: Angiographic findings: Nonaneurysmal aorta with mild atherosclerosis. No dissection. Branch vessels are grossly patent. CHEST: Thyroid: Normal. Thoracic inlet: No adenopathy. Heart and pulmonary arteries: The heart is borderline enlarged. Dual-chamber pacer in place with leads terminating in the right atrial appendage and right ventricle. Central pulmonary arteries are enlarged. Mediastinum and levy: No adenopathy. Moderate size hiatal hernia. Lungs and pleura: Bilateral scarring/atelectasis. No suspicious consolidation. No pleural effusion or pneumothorax. Breast and axilla: No adenopathy. ABDOMEN AND PELVIS: Liver and hepatic vasculature: Nonfocal, nonacute. Right hepatic artery arises from the superior mesenteric artery. Gallbladder and bile ducts: Bile duct prominence likely related to age and cholecystectomy. Spleen: Normal. Pancreas: Normal. Adrenals: Unchanged hypoattenuating right adrenal nodule consistent with adenoma measuring 11 mm. Kidneys, ureters and bladder: Kidneys are mildly atrophic. Bilateral renal cysts. No acute abnormality or suspicious lesion. Retroperitoneum: No acute abnormality or suspicious lesion. 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 GI tract, mesentery and peritoneum: Nonacute. Moderate to severe sigmoid diverticulosis. Moderate size hiatal hernia. Uterus and adnexa: Hysterectomy. Bones and soft tissues: No acute abnormality or suspicious lesion. Schmorl's node in L1. Compression fractures described on same-day radiographs may have been projectional. Surgical clips in the right inguinal region. IMPRESSION: 1. Nonacute nonaneurysmal aorta with mild atherosclerosis. 2. Enlarged central pulmonary arteries may indicate pulmonary arterial hypertension. 3. Moderate size hiatal hernia. 4. No acute osseous abnormality. The study was read by the radiologist. I viewed the images myself on the PACS system. ED Course/Re-evaluation Clinical Indication for ER IV: IV Access ED Course Patient was admitted to an examination room. H&P was done. The differential diagnoses was considered. On clinical exam. Patient has a nonfocal neurologic examination. She's complaining of severe back pain. Plain lumbar x-ray suggest compression fracture T11, 12 and L1. Patient with ongoing back pain. A CT scan with contrast was ordered to rule out abdominal aortic aneurysm. The CAT scan also had reformatted images for the T-spine and lumbar spine to clarify compression fractures. The CAT scans were unremarkable. Urinalysis is unremarkable. White blood cell count is normal. Lactate is normal. Chest x- ray is clear. Patient unable to get up without assistance from nursing staff. She is unable to go home. Case was discussed with hospitalist who accepts the patient for admission 10/01/2017 12:01:46 am case discussed with Dr. Qasim Jorge who accepts the patient for admission with diagnosis of back pain Decision to Disposition Date: Sep 30, 2017 Decision to Disposition Time: 19:59 Depart Departure Latest Vital Signs Vital Signs Date Time Temp Pulse Resp B/P (MAP) Pulse Ox O2 Delivery O2 Flow Rate FiO2 09/30/17 23:45 83 99 09/30/17 23:15 13 09/30/17 21:30 ???/??? (1665) 09/30/17 19:17 4.0 09/30/17 18:59 97.7 Nasal Cannula Impression: Primary Impression: Back pain Additional Impressions: Atrial fibrillation and flutter Chronic anticoagulation Elevated lipase Condition: Improved Disposition: Admitted from ER Problem Qualifiers Primary Impression: Back pain Back pain location: back pain in unspecified location Chronicity: acute Back pain laterality: midline Qualified Codes: M54.9 - Dorsalgia, unspecified EVERETT AYON DO Sep 30, 2017 18:59
--- NOTE | 2017-09-30 19:27 | EKG ---
[place] [facility] [place] NAME: BRIGIDA LOWERY : [id number] MR: [id number] V: [id number] EXAM DATE: ORDERING PHYSICIAN: EVERETT AYON TECHNOLOGIST: OMID Test Reason : PAIN Blood Pressure : / mmHG Vent. Rate : 084 BPM Atrial Rate : 340 BPM P-R Int : 000 ms QRS Dur : 098 ms QT Int : 398 ms P-R-T Axes : 000 -16 055 degrees QTc Int : 470 ms Atrial flutter with variable AV block Left axis Nonspecific interventricular conduction delay Abnormal ECG Confirmed by DARRIN LATHAM ([id number]) on 10/01/2017 5:48:40 AM Referred By: GABO Confirmed By:DARRIN LATHAM
[2017-09-30 19:35] LABS: PLATELET COUNT, AUTOMATED 190 K/uL (150-450)
--- NOTE | 2017-09-30 20:38 | RADIOLOGY IMAGING REPORT ---
FACILITY: [facility] PATIENT NAME: Sangeeta Esparza : 1930 MR: [id number] V: [id number] EXAM DATE: ORDERING PHYSICIAN: EVERETT AYON TECHNOLOGIST: Location: Patient: Sangeeta Esparza : 1930 Visit/Account:[id number] Date of Sevice: 09/30/2017 EXAMINATION: Portable AP Chest HISTORY: Back pain. COMPARISON: 06/03/2017. FINDINGS: Moderate cardiac enlargement with mild central pulmonary vascular congestion, unchanged from the prio r exam. Stable chronic streaky density in the lower left lung, likely related to chronic parenchymal scarring . No new focal consolidation. No pleural effusion or pneumothorax. Cardiac pacemaker, with lead tips overlying the RA and RV. IMPRESSION: No evidence of acute cardiopulmonary disease. Report Dictated By: Tal Amado MD at 09/30/2017 8:34 PM Report E-Signed By: Tal Amado MD at 09/30/2017 8:35 PM WSN:[id number]
--- NOTE | 2017-09-30 20:38 | RADIOLOGY IMAGING REPORT ---
FACILITY: [facility] PATIENT NAME: Sangeeta Esparza : 1930 MR: [id number] V: [id number] EXAM DATE: ORDERING PHYSICIAN: EVERETT AYON TECHNOLOGIST: Location: [facility] - [place] Patient: Sangeeta Esparza : 1930 Visit/Account:[id number] Date of Sevice: 09/30/2017 EXAMINATION: Lumbar Spine 5 views HISTORY: Back pain. COMPARISON: Chest radiograph to 06/03/2017. FINDINGS: There are 5 lumbar-type vertebral segments. There is mild wedging of the visualized T11, T12, and L1 vertebral bodies. No prior lumbar spine radi ographs are available for comparison. These changes however appear to be likely new in comparison to a lateral chest radiograph of 06/03/2017. Vertebral body height is maintained at the L2-L5 levels. Norm al alignment. Osteopenia, with chronic multilevel degenerative changes. There is severe disc space narrowing at the L4-L5 and L5-S1 interspaces. Disc spaces are otherwise preserved, with mild multilevel degenerative endplate changes. Facet arthropathy along the lower lumbar facet joints bilaterally. Cholecystectomy clips in the right upper abdomen. IMPRESSION: 1. Mild wedging of T11, T12, and L1 is likely new in comparison to a lateral chest radiograph of 2017. 2. No other acute osseous findings along the lumbar spine. Normal alignment. 2. Osteopenia with chronic multilevel degenerative changes, greatest at L4-L5 and L5-S1 Report Dictated By: Tal Amado MD at 09/30/2017 8:25 PM Report E-Signed By: Tal Amado MD at 09/30/2017 8:34 PM WSN:[id number]
[2017-09-30] MEDS ORDERED: NS(*) 0.9% 500 ML BAG 500 ML IV ONE (21:25)
[2017-09-30] MEDS ORDERED: IOPAMIDOL 76% 100 ML INFUS BTL 100 ML ONE (21:48)
[2017-09-30] MEDS ORDERED: NS 0.9% 25 ML BAG 75 ML ONE (21:48)
--- NOTE | 2017-09-30 23:05 | RADIOLOGY IMAGING REPORT ---
FACILITY: [facility] PATIENT NAME: Sangeeta Esparza : 1930 MR: [id number] V: [id number] EXAM DATE: ORDERING PHYSICIAN: EVERETT AYON TECHNOLOGIST: Location: [facility] [place] Patient: Sangeeta Esparza : 1930 Visit/Account:[id number] Date of Sevice: 09/30/2017 CTA CHEST, ABDOMEN AND PELVIS DATE OF EXAM: 09/30/2017 9:26 PM. INDICATION: Back pain. COMPARISON: Same-day radiographs, CT abdomen and pelvis 12/18/2013. TECHNIQUE: Contrast enhanced chest, abdomen and pelvis CT. The patient received 100 ml of Isovue 370 . Sagittal and coronal reconstructions were performed, as well as coronal 3D/MIP reconstructions. O ne of the following dose optimization techniques was utilized in the performance of this exam: Automa shireen exposure control; adjustment of the mA and/or kV according to the patient's size; or use of an it erative reconstruction technique. Specific details can be referenced in the facility's radiology CT exam operational policy. FINDINGS: Angiographic findings: Nonaneurysmal aorta with mild atherosclerosis. No dissection. Branch vessels are grossly patent. CHEST: Thyroid: Normal. Thoracic inlet: No adenopathy. Heart and pulmonary arteries: The heart is borderline enlarged. Dual-chamber pacer in place with le ads terminating in the right atrial appendage and right ventricle. Central pulmonary arteries are en larged. Mediastinum and levy: No adenopathy. Moderate size hiatal hernia. Lungs and pleura: Bilateral scarring/atelectasis. No suspicious consolidation. No pleural effusion or pneumothorax. Breast and axilla: No adenopathy. ABDOMEN AND PELVIS: Liver and hepatic vasculature: Nonfocal, nonacute. Right hepatic artery arises from the superior me senteric artery. Gallbladder and bile ducts: Bile duct prominence likely related to age and cholecystectomy. Spleen: Normal. Pancreas: Normal. Adrenals: Unchanged hypoattenuating right adrenal nodule consistent with adenoma measuring 11 mm. Kidneys, ureters and bladder: Kidneys are mildly atrophic. Bilateral renal cysts. No acute abnorma lity or suspicious lesion. Retroperitoneum: No acute abnormality or suspicious lesion. 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 GI tract, mesentery and peritoneum: Nonacute. Moderate to severe sigmoid diverticulosis. Moderate size hiatal hernia. Uterus and adnexa: Hysterectomy. Bones and soft tissues: No acute abnormality or suspicious lesion. Schmorl's node in L1. Compressi on fractures described on same-day radiographs may have been projectional. Surgical clips in the rig ht inguinal region. IMPRESSION: 1. Nonacute nonaneurysmal aorta with mild atherosclerosis. 2. Enlarged central pulmonary arteries may indicate pulmonary arterial hypertension. 3. Moderate size hiatal hernia. 4. No acute osseous abnormality. Report Dictated By: Moshe Mata MD at 09/30/2017 10:40 PM Report E-Signed By: Moshe Mata MD at 09/30/2017 11:01 PM WSN:[id number]
--- NOTE | 2017-09-30 23:48 | RADIOLOGY IMAGING REPORT ---
FACILITY: [facility] - [place] PATIENT NAME: Sangeeta Esparza : 1930 MR: [id number] V: [id number] EXAM DATE: ORDERING PHYSICIAN: EVERTET AYON TECHNOLOGIST: Location: [facility] [place] Patient: Sangeeta Esparza : 1930 Visit/Account:[id number] Date of Sevice: 09/30/2017 L-SPINE W CONTRAST, T-SPINE W CONTRAST INDICATION: Back pain, possible compression fractures of T11-L1 on radiographs. EXAM DATE: 09/30/2017 9:31 PM COMPARISON: Same-day radiographs and CTA chest, abdomen and pelvis. TECHNIQUE: Dedicated reconstructions of the thoracic and lumbar spine were provided from the previous CTA of the chest, abdomen and pelvis. The patient received 100 mL of Isovue IV contrast for that ex amination. Sagittal and coronal reconstructions were performed. One of the following dose optimizat ion techniques was utilized in the performance of this exam: Automated exposure control; adjustment o f the mA and/or kV according to the patient's size; or use of an iterative reconstruction technique. Specific details can be referenced in the facility's radiology CT exam operational policy. FINDINGS: No acute fracture or alignment abnormality in the thoracic and lumbar spine. Multilevel flowing oste ophytes in the thoracic spine. Mild multilevel remote compression deformities in the mid thoracic sp ine. The bodies of T9-T11 are partially fused. Schmorl's node at the superior endplate of L1. Mild to moderate spondylosis in the lower lumbar spine. IMPRESSION: No acute osseous abnormality of the thoracic and lumbar spine. Report Dictated By: Moshe Mata MD at 09/30/2017 11:33 PM Report E-Signed By: Moshe Mata MD at 09/30/2017 11:44 PM WSN:[id number]
--- NOTE | 2017-09-30 23:48 | RADIOLOGY IMAGING REPORT ---
FACILITY: [facility] - [place] PATIENT NAME: Sangeeta Esparza : 1930 MR: [id number] V: [id number] EXAM DATE: ORDERING PHYSICIAN: EVERETT AYON TECHNOLOGIST: Location: [facility] - [place] Patient: Sangeeta Esparza : 1930 Visit/Account:[id number] Date of Sevice: 09/30/2017 L-SPINE W CONTRAST, T-SPINE W CONTRAST INDICATION: Back pain, possible compression fractures of T11-L1 on radiographs. EXAM DATE: 09/30/2017 9:31 PM COMPARISON: Same-day radiographs and CTA chest, abdomen and pelvis. TECHNIQUE: Dedicated reconstructions of the thoracic and lumbar spine were provided from the previous CTA of the chest, abdomen and pelvis. The patient received 100 mL of Isovue IV contrast for that ex amination. Sagittal and coronal reconstructions were performed. One of the following dose optimizat ion techniques was utilized in the performance of this exam: Automated exposure control; adjustment o f the mA and/or kV according to the patient's size; or use of an iterative reconstruction technique. Specific details can be referenced in the facility's radiology CT exam operational policy. FINDINGS: No acute fracture or alignment abnormality in the thoracic and lumbar spine. Multilevel flowing oste ophytes in the thoracic spine. Mild multilevel remote compression deformities in the mid thoracic sp ine. The bodies of T9-T11 are partially fused. Schmorl's node at the superior endplate of L1. Mild to moderate spondylosis in the lower lumbar spine. IMPRESSION: No acute osseous abnormality of the thoracic and lumbar spine. Report Dictated By: Moshe Mata MD at 09/30/2017 11:33 PM Report E-Signed By: Moshe Mata MD at 09/30/2017 11:44 PM WSN:[id number]
[2017-10-01] VITALS (8 sets, daily range): BP systolic 111–138; BP diastolic 59–99; Ht 152.4 cm; Wt 87.2 kg
[2017-10-01] MEDS ORDERED: FLUSH 10 ML SYR IVP PRN (00:50)
--- NOTE | 2017-10-01 01:35 | History & Physical ---
History of Present Illness Chief Complaint Back pain History of Present Illness 87yo female with PMHx significant for chronic a-fib/flutter, diastolic heart failure, Parkinson's disease. She states she began having low back pain "a couple of days ago", but it became worse today. She was having some radiation of the pain into her right buttock/thigh. She also reports feeling some weakness in her right LE as well. She states she is normally able to get herself in/out of bed and ready for the day. She was unable to do any of this today. She reports a fall several days ago while getting out of bed, but is unsure if this is what triggered her problems. She denies any bowel/bladder incontinence. She has not had any fevers/chills. No N/V/diarrhea. No dysuria/ frequency. She was evaluated in the ER and found to have diffuse degenerative changes in her thoracic and lumbar spine, but no apparent acute fractures/ compressions. She was unable to ambulate. She was recommended for admission. History Problems: (1) Depression Status: Chronic (2) DVT (deep venous thrombosis) Status: Chronic (3) HTN (hypertension) Status: Chronic (4) Hypothyroid Status: Chronic (5) Cardiac pacemaker Status: Chronic (6) Right heart failure due to pulmonary hypertension Status: Chronic (7) Parkinsonism Status: Chronic (8) Herpes zoster Status: Resolved (9) Cellulitis of right arm Status: Resolved (10) Iron deficiency Status: Chronic (11) B12 deficiency Status: Chronic (12) Chronic anticoagulation Status: Chronic (13) Atrial fibrillation and flutter Status: Chronic (14) History of cholecystectomy Status: Resolved (15) History of repair of atrial septal defect Status: Resolved (16) History of hysterectomy Status: Resolved (17) History of appendectomy Status: Resolved Home Meds Active Scripts Triamcinolone Acetonide 0.1% Cr 15 Gm Tube (TRIAMCINOLONE ACETONIDE 0.1% CREAM) 15 Gm Cream..g., 1 DAJUAN TP BID Y for RASH for 14 Days, #1 TUBE Prov:FREDI JENKINS MD 09/27/17 Carbidopa/Levodopa (CARBIDOPA-LEVODOPA 25-100 TAB) 1 Each Tablet, 1 EACH PO BID for 90 Days, #270 TAB Prov:FREDI JENKINS MD 09/27/17 Lisinopril (LISINOPRIL) 5 Mg Tablet, 1 TAB PO DAILY for 90 Days, #90 TAB 4 Refills Prov:FREDI JENKINS MD 09/25/17 Furosemide (FUROSEMIDE) 40 Mg Tablet, 1 TAB PO BID for 90 Days, #180 TAB Prov:FREDI JENKINS MD 09/25/17 Ranitidine Hcl (RANITIDINE HCL) 150 Mg Tablet, 150 MG PO QHS for 90 Days, #90 TAB 3 Refills Prov:FREDI JENKINS MD 09/13/17 Citalopram Hydrobromide (CITALOPRAM HBR) 20 Mg Tablet, 20 MG PO QDAY for 90 Days , #90 TAB 3 Refills Prov:FREDI JENKINS MD 09/13/17 Reported Medications Ferrous Sulfate (IRON) 325 Mg Tablet, 1 TAB PO DAILY 09/13/17 Potassium Chloride (POTASSIUM CHLORIDE) 20 Meq Tab.er.prt, 1 TAB PO BID 09/13/17 Ascorbic Acid (VITAMIN C WITH BETO HIPS) 500 Mg Tablet, 1 TAB PO DAILY 08/31/17 Vit A/Vit C/Vit E/Zinc/Copper (PRESERVISION AREDS SOFTGEL) 1 Each Capsule, 1 EACH PO BID, CAPSULE 08/31/17 Oxygen (OXYGEN) Inha, 4 L INH DAILY, L Continuous 08/31/17 Rivaroxaban 15 Mg (XARELTO 15 MG) 15 Mg Tablet, 1 TAB PO QPM 06/03/17 Metoprolol Tartrate (Lopressor) 50 Mg Tablet, 1 TAB PO BID 04/05/11 Levothyroxine Sodium (Levothyroxine Sodium) 50 Mcg Tablet, 1 TAB PO DAILY, 0 Refills DO NOT TAKE THIS MEDICATION WITHIN 4 HOURS OF FERROUS SULFATE 04/05/11 Allergies: Coded Allergies: milk (Verified Allergy, Intermediate, UPSET STOMACH, 04/28/17) codeine (Verified Adverse Reaction, Intermediate, MADE HER CONFUSED, WEAK POOR BALANCE, 04/28/17) Hx Smoking: No Smoking Status: Never Smoker Exposure to Second Hand Smoke?: No Caffeine Intake: Coffee, Tea, Soda Caffeine/Cups Per Day: 2 C COFFEE AM, TEA OCCASIONAL, SODA 1/DAY Hx Alcohol Use: No Hx Substance Use Disorder: No Social Drug Use: Never Review of Systems Constitutional: No Fever, No Chills Neurological: Weakness, No Syncope, No Confusion, No Dizziness, No Slurred Speech Eyes: No Vision Change, No Loss of Vision ENT: Hearing Loss (chronic) Cardiovascular: No Chest Pain, No Palpitations Respiratory: No Shortness of Breath, No Cough Gastrointestinal: No Nausea, No Vomiting, No Diarrhea, No Hematemesis, No Hematochezia, No Melena, No Abdominal Pain Genitourinary: No Dysuria, No Hematuria, No Urinary Incontinence Musculoskeletal: Pain, Impaired Mobility Exam Vital Signs Vital Signs Date Time Temp Pulse Resp B/P (MAP) Pulse Ox O2 Delivery O2 Flow Rate FiO2 10/01/17 00:36 97.8 82 15 129/79 (96) 91 Nasal Cannula 4.0 General Appearance: Alert, Awake, Other (hard of hearing) Neuro: Other (no focal motor deficits noted/some mild generalized weakness in all muscle groups) ENT: Oropharynx Clear, Other (some decrease in facial expressions) Cardiovascular: Other (Irregular with distant tones/soft systolic murmur) Respiratory: Other (diminished breath sounds at bases) Chest: Other (pacemaker left upper chest) GI: Abd Soft and Non-Tender : No CVA Tenderness Musculoskeletal: Other (negative straight leg raise bilaterally) Extremities: Warm, Perfused Integumentary: Generalized Fragile Skin Psych: Alert & Oriented X3 Medical Decision Making Data Points Result Diagram: 09/30/173 09/30/171922 Item Value Date Time Lipase 319 U/L H 09/30/171922 Amylase Level 59 U/L 09/30/171922 Albumin 3.8 g/dl 09/30/171922 Total Protein 7.8 gm/dl 09/30/171922 C-Reactive Protein < 0.5 mg/dl 09/30/171922 Troponin I < 0.012 ng/ml 09/30/171922 Alkaline Phosphatase 108 U/L 09/30/171922 Alanine Aminotransferase (ALT/SGPT) 19 U/L 09/30/17 192 Aspartate Amino Transf (AST/SGOT) 20 U/L 09/30/171922 Total Bilirubin 0.3 mg/dl 09/30/171922 Calcium Level 9.2 mg/dl 09/30/171922 Lactate 1.1 mmol/L 09/30/171922 Urine Color Straw 09/30/172033 Urine Clarity Clear 09/30/172033 Urine pH 6.0 pH 09/30/172033 Urine Specific Anna 1.008 09/30/172033 Urine Protein Negative mg/dL 09/30/172033 Urine Glucose (UA) Negative mg/dL 09/30/172033 Urine Ketones Negative mg/dL 09/30/172033 Urine Blood Negative 09/30/172033 Urine Nitrite Negative 09/30/172033 Urine Bilirubin Negative 09/30/172033 Urine Urobilinogen Negative mg/dL 09/30/172033 Urine Leukocyte Esterase Negative 09/30/172033 Urine RBC <1 /HPF 09/30/172033 Urine WBC None /HPF 09/30/172033 Urine Squamous Epithelial Cells None /LPF 09/30/172033 Urine Bacteria Negative /HPF 09/30/172033 Urine Hyaline Casts Many /LPF H 09/30/172033 Urine Mucus None /HPF 09/30/172033 EKG / Imaging Imaging PATIENT NAME: Sangeeta Esparza : 1930 MR: [id number] V: [id number] EXAM DATE: ORDERING PHYSICIAN: EVERETT AYON TECHNOLOGIST: [place] [facility] [place] Sangeeta Esparza : 1930 Visit/Account:[id number] Date of Sevice: 09/30/2017 L-SPINE W CONTRAST, T-SPINE W CONTRAST INDICATION: Back pain, possible compression fractures of T11-L1 on radiographs. EXAM DATE: 09/30/2017 9:31 PM COMPARISON: Same-day radiographs and CTA chest, abdomen and pelvis. TECHNIQUE: Dedicated reconstructions of the thoracic and lumbar spine were provided from the previous CTA of the chest, abdomen and pelvis. The patient received 100 mL of Isovue IV contrast for that examination. Sagittal and coronal reconstructions were performed. One of the following dose optimization techniques was utilized in the performance of this exam: Automated exposure control; adjustment of the mA and/or kV according to the patient's size; or use of an iterative reconstruction technique. Specific details can be referenced in the facility's radiology CT exam operational policy. FINDINGS: No acute fracture or alignment abnormality in the thoracic and lumbar spine. Multilevel flowing osteophytes in the thoracic spine. Mild multilevel remote compression deformities in the mid thoracic spine. The bodies of T9-T11 are partially fused. Schmorl's node at the superior endplate of L1. Mild to moderate spondylosis in the lower lumbar spine. IMPRESSION: No acute osseous abnormality of the thoracic and lumbar spine. Report Dictated By: Moshe Mata MD at 09/30/2017 11:33 PM Report E-Signed By: Moshe Mata MD at 09/30/2017 11:44 PM WSN:[id number] PATIENT NAME: Sangeeta Esparza : 1930 MR: [id number] V: [id number] EXAM DATE: ORDERING PHYSICIAN: EVERETT AYON TECHNOLOGIST: [place] [facility] [place] Sangeeta Esparza : 1930 Visit/Account:[id number] Date of Sevice: 09/30/2017 EXAMINATION: Lumbar Spine 5 views HISTORY: Back pain. COMPARISON: Chest radiograph to 06/03/2017. FINDINGS: There are 5 lumbar-type vertebral segments. There is mild wedging of the visualized T11, T12, and L1 vertebral bodies. No prior lumbar spine radiographs are available for comparison. These changes however appear to be likely new in comparison to a lateral chest radiograph of . Vertebral body height is maintained at the L2-L5 levels. Normal alignment. Osteopenia, with chronic multilevel degenerative changes. There is severe disc space narrowing at the L4-L5 and L5-S1 interspaces. Disc spaces are otherwise preserved, with mild multilevel degenerative endplate changes. Facet arthropathy along the lower lumbar facet joints bilaterally. Cholecystectomy clips in the right upper abdomen. IMPRESSION: 1. Mild wedging of T11, T12, and L1 is likely new in comparison to a lateral chest radiograph of 06/03/2017. 2. No other acute osseous findings along the lumbar spine. Normal alignment. 2. Osteopenia with chronic multilevel degenerative changes, greatest at L4-L5 and L5-S1 Report Dictated By: Tal Amado MD at 09/30/2017 8:25 PM Report E-Signed By: Tal Amado MD at 09/30/2017 8:34 PM WSN:[id number] PATIENT NAME: Sangeeta Esparza : 1930 MR: [id number] V: [id number] EXAM DATE: [id number] ORDERING PHYSICIAN: EVERETT AYON TECHNOLOGIST: [place] [facility] [place] Sangeeta Esparza : 1930 Visit/Account:[id number] Date of Sevice: 09/30/2017 CTA CHEST, ABDOMEN AND PELVIS DATE OF EXAM: 09/30/2017 9:26 PM. INDICATION: Back pain. COMPARISON: Same-day radiographs, CT abdomen and pelvis 12/18/2013. TECHNIQUE: Contrast enhanced chest, abdomen and pelvis CT. The patient received 100 ml of Isovue 370. Sagittal and coronal reconstructions were performed, as well as coronal 3D/MIP reconstructions. One of the following dose optimization techniques was utilized in the performance of this exam: Automated exposure control; adjustment of the mA and/or kV according to the patient's size; or use of an iterative reconstruction technique. Specific details can be referenced in the facility's radiology CT exam operational policy. FINDINGS: Angiographic findings: Nonaneurysmal aorta with mild atherosclerosis. No dissection. Branch vessels are grossly patent. CHEST: Thyroid: Normal. Thoracic inlet: No adenopathy. Heart and pulmonary arteries: The heart is borderline enlarged. Dual-chamber pacer in place with leads terminating in the right atrial appendage and right ventricle. Central pulmonary arteries are enlarged. Mediastinum and levy: No adenopathy. Moderate size hiatal hernia. Lungs and pleura: Bilateral scarring/atelectasis. No suspicious consolidation. No pleural effusion or pneumothorax. Breast and axilla: No adenopathy. ABDOMEN AND PELVIS: Liver and hepatic vasculature: Nonfocal, nonacute. Right hepatic artery arises from the superior mesenteric artery. Gallbladder and bile ducts: Bile duct prominence likely related to age and cholecystectomy. Spleen: Normal. Pancreas: Normal. Adrenals: Unchanged hypoattenuating right adrenal nodule consistent with adenoma measuring 11 mm. Kidneys, ureters and bladder: Kidneys are mildly atrophic. Bilateral renal cysts. No acute abnormality or suspicious lesion. Retroperitoneum: No acute abnormality or suspicious lesion. 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 GI tract, mesentery and peritoneum: Nonacute. Moderate to severe sigmoid diverticulosis. Moderate size hiatal hernia. Uterus and adnexa: Hysterectomy. Bones and soft tissues: No acute abnormality or suspicious lesion. Schmorl's node in L1. Compression fractures described on same-day radiographs may have been projectional. Surgical clips in the right inguinal region. IMPRESSION: 1. Nonacute nonaneurysmal aorta with mild atherosclerosis. 2. Enlarged central pulmonary arteries may indicate pulmonary arterial hypertension. 3. Moderate size hiatal hernia. 4. No acute osseous abnormality. Report Dictated By: Moshe Mata MD at 09/30/2017 10:40 PM Report E-Signed By: Moshe Mata MD at 09/30/2017 11:01 PM WSN:[id number] Assessment and Plan Problems: (1) Back pain Status: Acute Assessment & Plan: It appears she has some chronic degenerative changes and possible previous thoracic compressions, but no obvious acute bony abnormalities. Lab work is unremarkable as well. She is unable to ambulate/ return home today. Will admit for pain control, PT/OT. (2) Atrial fibrillation and flutter Status: Chronic Assessment & Plan: Chronic. She is on metoprolol for rate control (also has pacemaker) and Xarelto for CVA prophylaxis. (3) Chronic anticoagulation Status: Chronic (4) Parkinsonism Status: Chronic Assessment & Plan: She has been managed with Sinemet 25/100 BID. (5) HTN (hypertension) Status: Chronic Assessment & Plan: She is on lisinopril and metoprolol. Watch BPs. (6) Hypothyroid Status: Chronic Assessment & Plan: Continue replacement therapy. Check TSH if it has not been done recently. Copies to: FREDI JENKINS MD Venous Thromboembolism Antithrombotics Is Pt On Any Antithrombotics?: Yes Heart Failure Ejection Fraction %: 63 RVSP (mmHg): 56 NYHA Class: III Is Patient on ROSEY Inhibitor?: Yes Is Patient on Beta Nathen?: Yes Admission Weight: 229 Exam Sepsis Risk: No Definite Risk Problem Qualifiers (1) Back pain: Back pain location: back pain in unspecified location Chronicity: acute Back pain laterality: midline Qualified Codes: M54.9 - Dorsalgia, unspecified DARRIN LATHAM MD Oct 01, 2017 01:35
[2017-10-01] MEDS: LEVOTHYROXINE SOD 0.05 MG TAB PO SCH (05:35)
[2017-10-01 05:48] LABS: PLATELET COUNT, AUTOMATED 167 K/uL (150-450)
--- NOTE | 2017-10-01 08:42 | Hospitalist Progress Note ---
Subjective Progress Notes Subjective She has no concerns this morning. She had no acute events overnight. Patient Complains of: Cardiovascular: No: Chest Pain Respiratory: No: Shortness of Breath Physical Exam Vital Signs Date Time Temp Pulse Resp B/P (MAP) Pulse Ox O2 Delivery O2 Flow Rate FiO2 10/01/17 07:58 95 Nasal Cannula 2.5 10/01/17 07:45 97.5 88 14 126/73 (90) 85 General Appearance: Alert, Awake, No Acute Distress, Afebrile Neuro: No Gross deficits Cardiovascular: Regular Rate and Rhythm Respiratory: No Respiratory Distress, Clear to Auscultation Psych: Alert & Oriented X3, Appropriate Mood & Affect Result Diagram: 10/01/1752410/01/17524 Assessment and Plan Problems: (1) Back pain Status: Acute Assessment & Plan: It appears she has some chronic degenerative changes and possible previous thoracic compressions, but no obvious acute bony abnormalities. Lab work is unremarkable as well. She is unable to ambulate/ return home today. She will be evaluated by PT/OT today and we will continue pain control. (2) Atrial fibrillation and flutter Status: Chronic Assessment & Plan: Chronic. She is on metoprolol for rate control (also has pacemaker) and Xarelto for CVA prophylaxis. (3) Chronic anticoagulation Status: Chronic (4) Parkinsonism Status: Chronic Assessment & Plan: She has been managed with Sinemet 25/100 BID. (5) HTN (hypertension) Status: Chronic Assessment & Plan: She is on lisinopril and metoprolol. Watch BPs. (6) Hypothyroid Status: Chronic Assessment & Plan: Continue replacement therapy. TSH is pending. Heart Failure Ejection Fraction %: 63 RVSP (mmHg): 56 NYHA Class: III Is Patient on ROSEY Inhibitor?: Yes Is Patient on Beta Nathen?: Yes Admission Weight: 229 Exam Sepsis Risk: No Definite Risk Problem Qualifiers (1) Back pain: Back pain location: back pain in unspecified location Chronicity: acute Back pain laterality: midline Qualified Codes: M54.9 - Dorsalgia, unspecified TAY RUBI WET PROCESS MILLER HEAD ASSISTANT Oct 01, 2017 08:41
[2017-10-01] MEDS: RANITIDINE HCL 150 MG TAB PO SCH (08:51)
[2017-10-01] MEDS: METOPROLOL TART 50 MG TAB PO SCH ×2 (08:52→20:34)
[2017-10-01] MEDS: FUROSEMIDE 40 MG TAB PO SCH ×2 (08:52→14:07)
[2017-10-01] MEDS: LISINOPRIL 5 MG TAB PO SCH (08:52)
[2017-10-01] MEDS: CITALOPRAM HYDROBROM 20 MG TAB PO SCH (08:53)
[2017-10-01] MEDS: CARBIDOPA/LEVODOPA 25/100 TAB PO SCH ×2 (08:53→20:34)
[2017-10-01] MEDS: ASCORBIC ACID 500 MG TAB PO SCH (08:53)
[2017-10-01] MEDS: POTASSIUM CHL 20 MEQ TABCR PO SCH ×2 (08:53→20:34)
[2017-10-01] MEDS ORDERED: METOPROLOL TART 50 MG TAB PO SCH (09:00)
[2017-10-01] MEDS ORDERED: FUROSEMIDE 40 MG TAB PO SCH (09:00)
[2017-10-01] MEDS ORDERED: LISINOPRIL 5 MG TAB PO SCH (09:00)
[2017-10-01] MEDS: ACETAMINOPHEN 325 MG TAB PO PRN ×2 (14:10→20:34)
[2017-10-01] MEDS ORDERED: RIVAROXABAN 10 MG TAB PO SCH (17:00)
[2017-10-02 02:01] VITALS: BP 123/75
[2017-10-02] MEDS: ACETAMINOPHEN 325 MG TAB PO PRN (03:31)
[2017-10-02] MEDS: LEVOTHYROXINE SOD 0.05 MG TAB PO SCH (05:52)
[2017-10-02 06:06] LABS: PLATELET COUNT, AUTOMATED 165 K/uL (150-450)
[2017-10-02] MEDS: FUROSEMIDE 40 MG TAB PO SCH (09:00)
[2017-10-02] MEDS: LISINOPRIL 5 MG TAB PO SCH (09:00)
[2017-10-02] MEDS: METOPROLOL TART 50 MG TAB PO SCH (09:00)
[2017-10-02] MEDS: CARBIDOPA/LEVODOPA 25/100 TAB PO SCH (09:27)
[2017-10-02] MEDS: RANITIDINE HCL 150 MG TAB PO SCH (09:27)
[2017-10-02] MEDS: POTASSIUM CHL 20 MEQ TABCR PO SCH (09:27)
[2017-10-02] MEDS: ASCORBIC ACID 500 MG TAB PO SCH (09:28)
[2017-10-02] MEDS: CITALOPRAM HYDROBROM 20 MG TAB PO SCH (09:28)
--- NOTE | 2017-10-02 09:54 | Hospitalist Depart ---
Discharge Summary Reason for Hosp/Final Diag: (1) Back pain Status: Acute Hospital Course & Plan: It appears she has some chronic degenerative changes and possible previous thoracic compressions, but no obvious acute bony abnormalities. Lab work is unremarkable as well. She is able to ambulate and she can return home today. She was evaluated by PT/OT and was able to ambulate with her walker. She does have Home health set up already. She will continue therapy at home. (2) Atrial fibrillation and flutter Status: Chronic Hospital Course & Plan: Chronic. She is on metoprolol for rate control (also has pacemaker) and Xarelto for CVA prophylaxis. (3) Chronic anticoagulation Status: Chronic (4) Parkinsonism Status: Chronic Hospital Course & Plan: She has been managed with Sinemet 25/100 BID. (5) HTN (hypertension) Status: Chronic Hospital Course & Plan: She is on lisinopril and metoprolol. (6) Hypothyroid Status: Chronic Hospital Course & Plan: Continue replacement therapy. TSH is pending. Departure Latest Vital Signs Vital Signs 10/02/17 10/02/17 02:01 08:13 Temp 97.6 Pulse 89 Resp 16 B/P (MAP) 123/75 (91) Pulse Ox 91 O2 Delivery Nasal Cannula O2 Flow Rate 1.0 Weight (Pounds): 192 Weight (Ounces): 4.0 Result Diagram: 10/02/17 0550 10/02/17 0550 Condition: Improved Discharge: Home, Home Health PT/OT Follow Up For: PT For Strengthening Home Health VALIDATION SOFTWARE FACILITATOR Follow Up For: ADL Assistance Discharge Instructions Home Meds Active Scripts Triamcinolone Acetonide 0.1% Cr 15 Gm Tube (TRIAMCINOLONE ACETONIDE 0.1% CREAM) 15 Gm Cream..g., 1 DAJUAN TP BID Y for RASH for 14 Days, #1 TUBE Prov:FREDI JENKINS MD 09/27/17 Carbidopa/Levodopa (CARBIDOPA-LEVODOPA 25-100 TAB) 1 Each Tablet, 1 EACH PO BID for 90 Days, #270 TAB Prov:FREDI JENKINS MD 09/27/17 Lisinopril (LISINOPRIL) 5 Mg Tablet, 1 TAB PO DAILY for 90 Days, #90 TAB 4 Refills Prov:FREDI JENKINS MD 09/25/17 Furosemide (FUROSEMIDE) 40 Mg Tablet, 1 TAB PO BID for 90 Days, #180 TAB Prov:FREDI JENKINS MD 09/25/17 Ranitidine Hcl (RANITIDINE HCL) 150 Mg Tablet, 150 MG PO QHS for 90 Days, #90 TAB 3 Refills Prov:FREDI JENKINS MD 09/13/17 Citalopram Hydrobromide (CITALOPRAM HBR) 20 Mg Tablet, 20 MG PO QDAY for 90 Days , #90 TAB 3 Refills Prov:FREDI JENKINS MD 09/13/17 Reported Medications Ferrous Sulfate (IRON) 325 Mg Tablet, 1 TAB PO DAILY 09/13/17 Potassium Chloride (POTASSIUM CHLORIDE) 20 Meq Tab.er.prt, 1 TAB PO BID 09/13/17 Ascorbic Acid (VITAMIN C WITH BETO HIPS) 500 Mg Tablet, 1 TAB PO DAILY 08/31/17 Vit A/Vit C/Vit E/Zinc/Copper (PRESERVISION AREDS SOFTGEL) 1 Each Capsule, 1 EACH PO BID, CAPSULE 08/31/17 Oxygen (OXYGEN) Inha, 4 L INH DAILY, L Continuous 08/31/17 Rivaroxaban 15 Mg (XARELTO 15 MG) 15 Mg Tablet, 1 TAB PO QPM 06/03/17 Metoprolol Tartrate (Lopressor) 50 Mg Tablet, 1 TAB PO BID 04/05/11 Levothyroxine Sodium (Levothyroxine Sodium) 50 Mcg Tablet, 1 TAB PO DAILY, 0 Refills DO NOT TAKE THIS MEDICATION WITHIN 4 HOURS OF FERROUS SULFATE 04/05/11 Diet: Regular Activity: As Tolerated, With Walker Copies to: FREDI JENKINS MD Venous Thromboembolism Antithrombotics Is Pt On Any Antithrombotics?: Yes Heart Failure Ejection Fraction %: 63 RVSP (mmHg): 56 NYHA Class: III Is Patient on ROSEY Inhibitor?: Yes Is Patient on Beta Nathen?: Yes Admission Weight: 229 Elfc-wr-[id number] Certification Face to Face Home Health Certification Institutional Provider conducted the [id number] encounter. Electronic Undersigning Physician Certifies Home Health. I certify that the patient has been under my care and that I had a [id number] encounter that meets the physician [id number] encounter requirements with this patient. This patient is home-bound due to safety issues and continues to require assistance with ADL's. I certify that based on my findings, that Nursing, Aides and the following Home Health services are medically necessary. Medical Necessity: Nursing, Rehab Date Face to Face Conducted: Oct 02, 2017 Problem Qualifiers (1) Back pain: Back pain location: back pain in unspecified location Chronicity: acute Back pain laterality: midline Qualified Codes: M54.9 - Dorsalgia, unspecified TAY RUBIP Oct 02, 2017 09:53
[2017-10-04] MEDS ORDERED: DICL100G39 TP (09:35)
[2017-10-04] MEDS ORDERED: METO-253 PO (17:26)
[2017-10-04] MEDS ORDERED: FURO-47 PO (17:36)
== END 2017-10-02 08:14 | disposition home health service (06) ==
LOC: EDUNIT# 18:51 → ER 18:53 → MED 10-01 00:03 → INTOOBSV 10-01 00:03
PROVIDERS: ADMIT Internal Medicine; ATTEND Internal Medicine
DX: M54.5 Low back pain (principal); I48.2 Chronic atrial fibrillation; Z79.01 Long term (current) use of anticoagulants; R79.89 Other specified abnormal findings of blood chemistry; G20 Parkinson's disease; I10 Essential (primary) hypertension; E03.9 Hypothyroidism, unspecified
CPT/HCPCS: 36415; 71045; 71275; 72120; 72129; 72132; 74174; 81001; 82150; 83605; 83690; 84443; 84484; 85025; 85651; 86140; 93005; 97116; 97161; 97165; 97535; 99285; A4353; A9270; G0378; J7040; Q9967; 82040; 82247; 82310; 82374; 82435; 82565; 82947; 84075; 84132; 84155; 84295; 84450; 84460; 84520

== ENCOUNTER → 2017-09-30 | Outpatient (CLI) | payer MEDICARE, MEDICAID ==
[~2017-09-30] MED LIST changes: +DICL100G39 TP; +METO-253 PO
[2017-10-01 10:24] VITALS: BMI 37.5
== END ==
LOC: AMB 17:35
PROVIDERS: ATTEND Nurse Practitioner
DX: M54.9 Dorsalgia, unspecified (principal)
CPT/HCPCS: A0425; A0427

== ENCOUNTER → 2017-10-18 | Outpatient (CLI) | payer MEDICARE, MEDICAID ==
[2017-10-01 10:24] VITALS: BMI 37.5
[~2017-10-18] MED LIST changes: +DICL100G39 TP; +METO-253 PO; +NYST15PO4 TP
[2017-10-18 17:19] LABS: PLATELET COUNT, AUTOMATED 262 K/uL (150-450)
--- NOTE | 2017-10-18 22:07 | RADIOLOGY IMAGING REPORT ---
[place] [facility] [place] NAME: Sangeeta Esparza : 1930 MR: [id number] V: [id number] EXAM DATE: ORDERING PHYSICIAN: FREDI JENKINS TECHNOLOGIST: Location: [facility] [place] Patient: Sangeeta Esparza : 1930 Visit/Account:[id number] Date of Sevice: 10/18/2017 KUB SINGLE VIEW ABDOMEN INDICATION: Constipation COMPARISON: September 08, 2014 FINDINGS: 2 supine frontal views obtained. Cholecystectomy clips noted. No abnormal calcifications or organomegaly. No dilated bowel loops. Mild convexity right lumbar scoliosis. Pacemaker leads noted i n the chest. Left basilar subsegmental atelectasis also noted. Colonic stool noted. IMPRESSION: 1. No acute finding. 2. Minimal colonic stool. Report Dictated By: Isaias Hernandez MD at 10/18/2017 10:01 PM Report E-Signed By: Isaias Hernandez MD at 10/18/2017 10:03 PM WSN:[id number]
== END ==
LOC: LAB 16:47
PROVIDERS: ATTEND Family Medicine
DX: M41.86 Other forms of scoliosis, lumbar region (principal); Z95.0 Presence of cardiac pacemaker; Z90.49 Acquired absence of other specified parts of digestive tract; J98.11 Atelectasis
CPT/HCPCS: 36415; 74018; 82310; 82374; 82435; 82565; 82947; 84132; 84295; 84520; 85025

== ENCOUNTER 2017-11-22 19:35 | Observation (INO) | payer MEDICARE, MEDICAID ==
[~2017-11-22] VITALS: Ht 152.4 cm; Wt 80.7 kg
[~2017-11-22 19:35] MED LIST changes: -CALC3.7S10 NS; -LEVO50TA86 PO; -LIDO700A19 TP
[2017-11-22] MEDS ORDERED: NS(*) 0.9% 1000 ML BAG 1,000 ML IV ONE (20:22)
[2017-11-22] MEDS ORDERED: fentaNYL CITR 100 MCG/2 ML AMP IVP ONE (20:25)
--- NOTE | 2017-11-22 20:44 | EKG ---
FACILITY: [facility] [place] PATIENT NAME: BRIGIDA LOWERY : [id number] MR: [id number] V: [id number] EXAM DATE: ORDERING PHYSICIAN: VIVIANA WHITTEN TECHNOLOGIST: JERRY Tanner Reason : Blood Pressure : / mmHG Vent. Rate : 098 BPM Atrial Rate : 359 BPM P-R Int : 000 ms QRS Dur : 084 ms QT Int : 352 ms P-R-T Axes : 000 -05 085 degrees QTc Int : 449 ms Atrial flutter with variable AV block Left axis Nonspecific ST and T wave abnormality Abnormal ECG Confirmed by DARRIN LATHAM ([id number]) on 11/23/2017 6:09:41 AM Referred By: Confirmed By:DARRIN LATHAM
--- NOTE | 2017-11-22 20:57 | ER Report ---
History and Physical Time Seen By MD: 19:51 Hx. of Stated Complaint: PT WAS AT HOME, GOT DIZZY AND FELL. PT STATES SHE FELL ON HER BACK AND LEFT ARM , AND HIT HER HEAD. HPI/ROS CHIEF COMPLAINT: Fall with pain HISTORY OF PRESENT ILLNESS: 87-year-old female patient presents to emergency room with complaint of fall with pain. Patient states that she was getting up to go the bathroom. She did get help from a family member. In route to the bathroom she became dizzy and lost her balance and fell. As she fell she hurt the top of her head, her back as well as her left shoulder. She states she fell forward landing on her face. She states she does have pain to the nose. She also has pain to the left shoulder. She denies having any numbness or tingling to her hand. She states she does have some numbness and tingling to her feet. She states that she is not had any loss of bowel or bladder control. She states the pain is very significant. She has not taken anything for pain. She states she does hurt everywhere. Patient denies any loss of consciousness REVIEW OF SYSTEMS: Respiratory: No cough, no dyspnea. Cardiovascular: No chest pain, no palpitations. Gastrointestinal: No vomiting, no abdominal pain. Musculoskeletal: As noted above Allergies: Coded Allergies: milk (Verified Allergy, Intermediate, UPSET STOMACH, 04/28/17) codeine (Verified Adverse Reaction, Intermediate, MADE HER CONFUSED, WEAK POOR BALANCE, 04/28/17) hydromorphone (Verified Adverse Reaction, Mild, "SHAKY", 11/23/17) Home Meds Active Scripts Lidocaine (Lidocaine) 5 % Adh..patch, 1 EACH TP QDAY Y for BACK PAIN, #30 PATCH Prov:IRVIN KELLEY DO 11/24/17 Lactose-Reduced Food (Ensure Original) 237 Ml Liquid, 1 BOTTLE PO DAILY for 30 Days, #30 BOTTLE 11 Refills Lactose FREE 1 bottle as a snack every day, do not replace meals with ensure. Prov:FREDI JENKINS MD 11/06/17 Duloxetine Hcl (CYMBALTA) 20 Mg Capcr, 40 MG PO QDAY for 90 Days, #90 CAP Prov:FREDI JENKINS MD 11/05/17 Diclofenac Sodium 1% Gel (VOLTAREN 1% GEL) 100 Gm Gel..gram., 1 DAJUAN TP TID for 30 Days, #1 TUBE 6 Refills Prov:FREDI JENKINS MD 10/22/17 Nystatin 100,000 Unit/Gm Top Powder (NYSTATIN 100,000 UNIT/GM TOP POWDER) 15 Gm Powder, 1 DAJUAN TP BID for 30 Days, #1 BOTTLE 6 Refills Prov:FREDI JENKINS MD 10/18/17 Metoprolol Tartrate (METOPROLOL TARTRATE) 50 Mg Tab, 1 TAB PO BID for 90 Days, # 180 TAB 4 Refills Prov:FREDI JENKINS MD 10/04/17 Triamcinolone Acetonide 0.1% Cr 15 Gm Tube (TRIAMCINOLONE ACETONIDE 0.1% CREAM) 15 Gm Cream..g., 1 DAJUAN TP BID Y for RASH for 14 Days, #1 TUBE Prov:FREDI JENKINS MD 09/27/17 Carbidopa/Levodopa (CARBIDOPA-LEVODOPA 25-100 TAB) 1 Each Tablet, 1 EACH PO BID for 90 Days, #270 TAB Prov:FREDI JENKINS MD 09/27/17 Ranitidine Hcl (RANITIDINE HCL) 150 Mg Tablet, 150 MG PO QHS for 90 Days, #90 TAB 3 Refills Prov:FREDI JENKINS MD 09/13/17 Reported Medications Acetaminophen (TYLENOL EXTRA STRENGTH) 500 Mg Tablet, 2 TAB PO TID, CAP 11/05/17 Tramadol Hcl (TRAMADOL HCL) 50 Mg Tablet, 0.5-1 TAB PO Q6h Y for pain, TAB 11/05/17 Ferrous Sulfate (IRON) 325 Mg Tablet, 1 TAB PO DAILY 09/13/17 Ascorbic Acid (VITAMIN C WITH BETO HIPS) 500 Mg Tablet, 1 TAB PO DAILY 08/31/17 Vit A/Vit C/Vit E/Zinc/Copper (PRESERVISION AREDS SOFTGEL) 1 Each Capsule, 1 EACH PO BID, CAPSULE 08/31/17 Oxygen (OXYGEN) Inha, 4 L INH DAILY, L Continuous 08/31/17 Rivaroxaban 15 Mg (XARELTO 15 MG) 15 Mg Tablet, 1 TAB PO QPM 06/03/17 Levothyroxine Sodium (Levothyroxine Sodium) 50 Mcg Tablet, 1 TAB PO DAILY, 0 Refills DO NOT TAKE THIS MEDICATION WITHIN 4 HOURS OF FERROUS SULFATE 04/05/11 Discontinued Scripts Lisinopril (LISINOPRIL) 5 Mg Tablet, 0.5 TAB PO DAILY for 90 Days, #90 TAB 4 Refills Prov:FREDI JENKINS MD 11/05/17 Methylprednisolone (METHYLPREDNISOLONE) 4 Mg Tab.ds.pk, 4 MG PO DIRECTED, #1 PACK Prov:FREDI JENKINS MD 11/15/17 Potassium Chloride (POTASSIUM CHLORIDE) 20 Meq Tab.er.prt, 1 TAB PO DAILY for 90 Days, #90 TAB Prov:FREDI JENKINS MD 11/15/17 Furosemide (FUROSEMIDE) 40 Mg Tablet, 0.5 TAB PO DAILY for 90 Days, #45 TAB Prov:FREDI JENKINS MD 11/05/17 Past Medical/Surgical History Patient has a past medical history of seizures, angina, irregular heartbeat, DVT , hypertension, continuous oxygen, pneumonia, H. pylori, cholecystitis, frequent TIAs, arthritis, ankle fracture, hard of hearing, hypothyroidism, on Xarelto, depression. Patient has a surgical history of heart surgery, pacemaker placement, cholecystectomy, appendectomy, hysterectomy, bone spurs removed from neck, carpal tunnel release, bilateral cataract surgery. Patient has a family medical history of diabetes, stroke, cancer. Reviewed Nurses Notes: Yes Hx Smoking: No Smoking Status: Never Smoker Exposure to Second Hand Smoke?: No Hx Substance Use Disorder: No Hx Alcohol Use: No Constitutional Vital Sign - Last 24 Hours 11/22/17 11/22/17 11/22/17 11/22/17 19:41 21:21 21:45 22:00 Temp 98.1 Pulse 105 Resp 18 B/P (MAP) 100/91 89/60 (70) 133/98 (110) Pulse Ox 100 O2 Delivery Nasal Cannula O2 Flow Rate 4.0 11/22/17 11/22/17 11/22/17 11/23/17 22:30 23:00 23:45 00:30 B/P (MAP) 117/75 (89) 96/88 (91) 119/65 (83) 130/82 (98) 11/23/17 01:00 B/P (MAP) 125/73 (90) Physical Exam General Appearance: The patient is alert, has no immediate need for airway protection and no current signs of toxicity. Respiratory: Chest is non tender, lungs are clear to auscultation. Cardiac: regular rate and rhythm Gastrointestinal: Abdomen is soft and tender in the right upper quadrant, no masses, bowel sounds normal. Musculoskeletal: Neck: Neck is supple and non tender. Extremities have full range of motion and are non tender. Patient does have some facial tenderness. Skin: No rashes or lesions. DIFFERENTIAL DIAGNOSIS: After history and physical exam differential diagnosis was considered for head injury including but not limited to concussion, skull fracture, intraparenchymal contusion, subarachnoid, subdural and epidural hematoma. Included in the differential is compression fracture of the lumbar spine, nasal bone fracture, laceration of the liver, abdominal injury. Medical Decision Making Data Points Result Diagram: 11/24/17 0548 11/24/17 0548 Laboratory Hematology Test 11/22/17 21:36 11/23/17 00:11 Prothrombin Time 13.3 seconds (12.0-14.4) Prothromb Time International Ratio 1.01 Activated Partial Thromboplast Time 27 seconds (23-35) Total Bilirubin 0.4 mg/dl (0.2-1.3) Aspartate Amino Transf (AST/SGOT) 36 U/L (0-35) Alanine Aminotransferase (ALT/SGPT) 30 U/L (0-56) Alkaline Phosphatase 102 U/L (0-126) Total Protein 8.5 g/dl (6.3-8.2) Albumin 4.1 g/dl (3.5-5.0) Thyroid Stimulating Hormone (TSH) 2.97 uIU/ml (0.46-4.68) Urine Color Yellow Urine Clarity Clear Urine pH 5.0 pH (4.8-9.5) Urine Specific [place] 1.018 Urine Protein Negative mg/dL (NEGATIVE) Urine Glucose (UA) Negative mg/dL (NEGATIVE) Urine Ketones Negative mg/dL (NEGATIVE) Urine Blood Negative (NEGATIVE) Urine Nitrite Negative (NEGATIVE) Urine Bilirubin Negative (NEGATIVE) Urine Urobilinogen Negative mg/dL (0.2-1.9) Urine Leukocyte Esterase Moderate (NEGATIVE) Urine RBC 1 /HPF (0-2/HPF) Urine WBC 3 /HPF (0-5/HPF) Urine Squamous Epithelial Cells Few /LPF (NONE-FEW) Urine Bacteria Negative /HPF (NONE-FEW) Urine Hyaline Casts Few /LPF (NONE-FEW) Urine Mucus None /HPF (NONE-FEW) Chemistry Test 11/22/17 21:36 11/23/17 00:11 Prothrombin Time 13.3 seconds (12.0-14.4) Prothromb Time International Ratio 1.01 Activated Partial Thromboplast Time 27 seconds (23-35) Total Bilirubin 0.4 mg/dl (0.2-1.3) Aspartate Amino Transf (AST/SGOT) 36 U/L (0-35) Alanine Aminotransferase (ALT/SGPT) 30 U/L (0-56) Alkaline Phosphatase 102 U/L (0-126) Total Protein 8.5 g/dl (6.3-8.2) Albumin 4.1 g/dl (3.5-5.0) Thyroid Stimulating Hormone (TSH) 2.97 uIU/ml (0.46-4.68) Urine Color Yellow Urine Clarity Clear Urine pH 5.0 pH (4.8-9.5) Urine Specific [place] 1.018 Urine Protein Negative mg/dL (NEGATIVE) Urine Glucose (UA) Negative mg/dL (NEGATIVE) Urine Ketones Negative mg/dL (NEGATIVE) Urine Blood Negative (NEGATIVE) Urine Nitrite Negative (NEGATIVE) Urine Bilirubin Negative (NEGATIVE) Urine Urobilinogen Negative mg/dL (0.2-1.9) Urine Leukocyte Esterase Moderate (NEGATIVE) Urine RBC 1 /HPF (0-2/HPF) Urine WBC 3 /HPF (0-5/HPF) Urine Squamous Epithelial Cells Few /LPF (NONE-FEW) Urine Bacteria Negative /HPF (NONE-FEW) Urine Hyaline Casts Few /LPF (NONE-FEW) Urine Mucus None /HPF (NONE-FEW) Coagulation Test 11/22/17 21:36 Prothrombin Time 13.3 seconds Prothromb Time International Ratio 1.01 Activated Partial Thromboplast Time 27 seconds Urinalysis Test 11/23/17 00:11 Urine Color Yellow Urine Clarity Clear Urine pH 5.0 pH (4.8-9.5) Urine Specific [place] 1.018 Urine Protein Negative mg/dL (NEGATIVE) Urine Glucose (UA) Negative mg/dL (NEGATIVE) Urine Ketones Negative mg/dL (NEGATIVE) Urine Blood Negative (NEGATIVE) Urine Nitrite Negative (NEGATIVE) Urine Bilirubin Negative (NEGATIVE) Urine Urobilinogen Negative mg/dL (0.2-1.9) Urine Leukocyte Esterase Moderate (NEGATIVE) Urine RBC 1 /HPF (0-2/HPF) Urine WBC 3 /HPF (0-5/HPF) Urine Squamous Epithelial Cells Few /LPF (NONE-FEW) Urine Bacteria Negative /HPF (NONE-FEW) Urine Hyaline Casts Few /LPF (NONE-FEW) Urine Mucus None /HPF (NONE-FEW) Microbiology Microbiology Date/Time Source Procedure Growth Status 11/23/17 00:11 Cath Urine Urine Culture - Preliminary Gram Positive Umberto-Diphtheroids Gram Positive Umberto-Diphtheroids#2 Resulted EKG/Imaging EKG Interpretation 12 lead EKG: Rhythm: Atrial flutter with AV block [place]: normal QRS: normal ST segments: No specific ST abnormality ED Course/Re-evaluation ED Course Patient was admitted and examined, history and physical were obtained. Differential diagnoses were considered. On examination patient had significant generalized pain. Multiple attempts to get an IV were attempted and unsuccessful. Patient was given IM pain medication, fentanyl and then Dilaudid. Dilaudid seemed to have more effect on the pain. A CT scan of the head, cervical , lumbar spines were done. A CT scan of abdomen and pelvis was done. Initially that was ordered with contrast, however due to the inability to get IV access was done without contrast. Did show compression fractures of the thoracic and lumbar spines. Patient was turned over to Dr. Linder. He did discuss the case with hospitalist, Dr. Jorge, who did accept the patient for admission. Decision to Disposition Date: Nov 23, 2017 Decision to Disposition Time: 00:30 Turned Over 11/23/2017 12:05:49 am The care of the patient was turned over to Dr. Linder. Rubio Jones [facility] I authorize my typed signature that I authenticated this report. Depart Departure Latest Vital Signs Vital Signs Date Time Temp Pulse Resp B/P (MAP) Pulse Ox O2 Delivery O2 Flow Rate FiO2 11/23/17 01:00 125/73 (90) 11/22/17 21:21 4.0 11/22/17 19:41 98.1 105 18 100 Nasal Cannula Impression: Primary Impression: Compression fracture of thoracolumbar vertebra Condition: Condition Unchanged Disposition: Admitted from ER Referrals: FREDI JENKINS MD (PCP) New Scripts Lidocaine (Lidocaine) 5 % Adh..patch 1 EACH TP QDAY Y for BACK PAIN, #30 PATCH Prov: IRVIN KELLEY DO 11/24/17 Problem Qualifiers Primary Impression: Compression fracture of thoracolumbar vertebra Encounter type: initial encounter Fracture type: closed Qualified Codes: S22.080A - Wedge compression fracture of t11-T12 vertebra, initial encounter for closed fracture; S32.010A - Wedge compression fracture of first lumbar vertebra, initial encounter for closed fracture RUBIO JONES [facility] Nov 22, 2017 20:57
[2017-11-22] MEDS ORDERED: IOPAMIDOL 76% 100 ML INFUS BTL 0 ML ONE (21:10)
[2017-11-22 21:46] LABS: PLATELET COUNT, AUTOMATED 215 K/uL (150-450)
[2017-11-22 21:52] LABS: INR 1.01
[2017-11-22] MEDS ORDERED: HYDROMORPHONE HCL 1 MG/ML SYRINGE IM ONE (22:25)
--- NOTE | 2017-11-22 22:41 | RADIOLOGY IMAGING REPORT ---
FACILITY: [facility] - [place], [place] PATIENT NAME: Sangeeta Esparza : 1930 MR: [id number] V: [id number] EXAM DATE: ORDERING PHYSICIAN: VIVIANA WHITTEN TECHNOLOGIST: [place] [facility] [place] Sangeeta Esparza : 1930 Visit/Account:[id number] Date of Sevice: 11/22/2017 EXAMINATION: Left shoulder 2 views. HISTORY: Dizziness. COMPARISON: None FINDINGS: No evidence of acute fracture or dislocation about the left shoulder. Normal alignment at the glenohu meral and acromioclavicular joints. Mild degenerative changes at the glenohumeral joint, with inferio r osteophyte formation. Visualized upper left ribs appear intact. Cardiac pacemaker. IMPRESSION: No acute osseous findings about the left shoulder. Mild chronic degenerative changes. Report Dictated By: Tal Amado MD at 11/22/2017 10:26 PM Report E-Signed By: Tal Amado MD at 11/22/2017 10:36 PM WSN:[id number]
--- NOTE | 2017-11-22 23:51 | RADIOLOGY IMAGING REPORT ---
[place] [facility] [place] NAME: Sangeeta Espraza : 1930 MR: [id number] V: [id number] EXAM DATE: ORDERING PHYSICIAN: VIVIANA WHITTEN TECHNOLOGIST: Location: [facility] Patient: Sangeeta Esparza : 1930 Visit/Account:[id number] Date of Sevice: 11/22/2017 PORTABLE CHEST: Indication: Injury. Technique: A single frontal film was obtained. Comparison: 09/30/2017 Skeletal and soft tissue structures: Intact as visualized. No obvious acute deformity. Heart and mediastinum: Stable cardiomegaly. The cardiac pacemaker appears unchanged. Lung saldivar: Hypoexpanded. There are chronic fibrotic opacities, without significant change. No acute process is clearly identified. Pleural spaces: No evidence of pneumothorax or significant effusion. Impression: No acute process or significant change. Report Dictated By: Rush Butler MD at 11/22/2017 11:44 PM Report E-Signed By: Rush Butler MD at 11/22/2017 11:48 PM WSN:[id number]
--- NOTE | 2017-11-23 00:01 | RADIOLOGY IMAGING REPORT ---
FACILITY: [facility] - [place] PATIENT NAME: Sangeeta Esparza : 1930 MR: [id number] V: [id number] EXAM DATE: ORDERING PHYSICIAN: VIVIANA WHITTEN TECHNOLOGIST: Location: [facility] Patient: Sangeeta Esparza : 1930 Visit/Account:[id number] Date of Sevice: 11/22/[address]: Indication: Injury. Technique: Contiguous axial sections were obtained from the base to the vertex without contrast enhan cement. One of the following dose optimization techniques was utilized in the performance of this exam: Autom ated exposure control; adjustment of the mA and/or kV according to the patient's size; or use of an i terative reconstruction technique. Specific details can be referenced in the facility's radiology CT exam operational policy. Comparison: None. Findings: There is no evidence of intra-axial or extra-axial hemorrhage. There is diffuse cortical an d cerebellar atrophy, with diffuse compensatory dilatation of the ventricles. There are also diffuse changes in the periventricular white matter. No focal areas of decreased or increased attenuation are identified. There is no evidence of mass, edema, or shift of the midline structures. There are diffuse osteolytic lesions in the calvarium, suggesting metastatic disease or myeloma. Ther e are no signs of fracture or acute skeletal deformity. Impression: Diffuse atrophy. No evidence of hemorrhage or acute intracranial abnormality. There is no evidence of skull fracture, but there are diffuse osteolytic lesions, suggesting metastatic disease or myeloma. Report Dictated By: Rush Butler MD at 11/22/2017 11:52 PM Report E-Signed By: Rush Butler MD at 11/22/2017 11:58 PM WSN:[id number]
--- NOTE | 2017-11-23 00:11 | RADIOLOGY IMAGING REPORT ---
FACILITY: [facility] - [place] PATIENT NAME: Sangeeta Esparza : 1930 MR: [id number] V: [id number] EXAM DATE: ORDERING PHYSICIAN: VIVIANA WHITTEN TECHNOLOGIST: Location: [facility] - [place] Patient: Sangeeta Esparza : 1930 Visit/Account:[id number] Date of Sevice: 11/22/2017 CT of the cervical spine without contrast: Indication: Injury. Technique: Helical CT was performed through the cervical spine without contrast. Axial, coronal, and sagittal reconstructions are reviewed. One of the following dose optimization techniques was utilized in the performance of this exam: Autom ated exposure control; adjustment of the mA and/or kV according to the patient's size; or use of an i terative reconstruction technique. Specific details can be referenced in the facility's radiology CT exam operational policy. Comparison: None. Findings: There are no definite signs of acute deformity. There are multiple osteolytic skeletal lesi ons, compatible with metastatic disease or myeloma. There is a destructive lesion in the spinous proc ess of C2. Moderate degenerative disc disease and osteophyte arthritic spur formation is present in t he mid and lower cervical spine. The paraspinal soft tissues are unremarkable, as visualized. There is a tiny calcified nodule in the left lobe of thyroid, and there also appears to be a small noncalcified lesion in the right lobe of t he thyroid. IMPRESSION: No evidence of fracture or acute skeletal deformity. There are multiple osteolytic lesion s, compatible with metastatic disease or myeloma. Report Dictated By: Rush Butler MD at 11/23/2017 12:01 AM Report E-Signed By: Rush Butler MD at 11/23/2017 12:07 AM WSN:[id number]
--- NOTE | 2017-11-23 00:39 | RADIOLOGY IMAGING REPORT ---
FACILITY: [facility] - [place] PATIENT NAME: Sangeeta Esparza : 1930 MR: [id number] V: [id number] EXAM DATE: ORDERING PHYSICIAN: VIVIANA WHITTEN TECHNOLOGIST: Location: [facility] Patient: Sangeeta Esparza : 1930 Visit/Account:[id number] Date of Sevice: 11/22/2017 CT of the facial bones and orbits: HISTORY: Injury. TECHNIQUE: Helical CT was performed without contrast. Multiplanar reconstructions are reviewed. One of the following dose optimization techniques was utilized in the performance of this exam: Autom ated exposure control; adjustment of the mA and/or kV according to the patient's size; or use of an i terative reconstruction technique. Specific details can be referenced in the facility's radiology CT exam operational policy. COMPARISON: None. FINDINGS: Osseous structures: No evidence of fracture, dislocation, or acute skeletal deformity. Diffuse osteol ytic skeletal lesions are present. Soft Tissues: No evidence of focal soft tissue deformity or fluid collection. Orbits: Symmetrical and unremarkable. Sinuses and mastoids: Clear. IMPRESSION: No acute deformity. Report Dictated By: Rush Butler MD at 11/23/2017 12:29 AM Report E-Signed By: Rush Butler MD at 11/23/2017 12:35 AM WSN:[id number]
--- NOTE | 2017-11-23 00:55 | RADIOLOGY IMAGING REPORT ---
FACILITY: [facility] PATIENT NAME: Sangeeta Esparza : 1930 MR: [id number] V: [id number] EXAM DATE: ORDERING PHYSICIAN: VIVIANA WHITTEN TECHNOLOGIST: Location: [facility] Patient: Sangeeta Esparza : 1930 Visit/Account:[id number] Date of Sevice: 11/22/2017 CT of the abdomen and pelvis without contrast; CT of the lumbar spine without contrast: Indication: Injury. Technique: Helical CT was performed through the abdomen and pelvis without contrast. Dedicated recons tructed images of the lumbar spine were also obtained. Multiplanar reconstructions are reviewed. One of the following dose optimization techniques was utilized in the performance of this exam: Autom ated exposure control; adjustment of the mA and/or kV according to the patient's size; or use of an i terative reconstruction technique. Specific details can be referenced in the facility's radiology CT exam operational policy. Comparison: 09/30/2017 Lower lung saldivar: Linear fibrotic opacities present in both lungs, without significant change. No ac wanda parenchymal or pleural process is identified. A small/moderate hiatal hernia appears unchanged. Liver: Normal in size, shape, and density. Gallbladder/biliary tree: There are surgical clips related to prior cholecystectomy. The bile ducts a re normal in caliber. Pancreas: Atrophic, but otherwise unremarkable. Spleen: Normal in size, shape, and density. Adrenal glands: Unremarkable and unchanged. Kidneys/urinary bladder: There is bilateral cortical thinning. Small cortical cysts are present. Ther e are no signs of acute deformity or obstruction. The urinary bladder appears homogeneous and unchanged. Intestinal structures: There is chronic diverticulosis in the descending colon and sigmoid colon. The re are no signs of acute diverticulitis. There is no evidence of intestinal obstruction or acute defo rmity. Pelvis: The uterus is absent. There is no evidence of mass or fluid collection in the pelvis. There a re multiple venous varicosities in the lower anterior abdominal wall, of uncertain etiology. There butcher s been no change from the prior study. Aorta and vascular structures: There is mild atherosclerotic calcification in the aorta and iliac art eries. There is no evidence of aneurysm or acute change. Ascites or fluid collections: None seen. Skeletal structures: There is now evidence of a moderate compression deformity of the L1 vertebral candelaria dy. There is also new mild compression deformity of the T12 vertebral body, and there is a minimal d eformity in the upper endplate of the L2 vertebral body. There is no displacement or angulation of th e skeletal structures. There are no signs of retropulsion or narrowing of the spinal canal. There is diffuse demineralization of the skeletal structures, consistent with osteoporosis. Impression: New compression deformities are observed in the lower thoracic and upper lumbar spine, pr esumed acute. There are no signs of displacement, angulation, or retropulsion. No acute visceral abnormalities are identified in the abdomen or pelvis. There is no evidence of free fluid. Report Dictated By: Rush Butler MD at 11/23/2017 12:35 AM Report E-Signed By: Rush Butler MD at 11/23/2017 12:52 AM WSN:[id number]
--- NOTE | 2017-11-23 00:56 | RADIOLOGY IMAGING REPORT ---
FACILITY: [facility] PATIENT NAME: Sangeeta Esparza : 1930 MR: [id number] V: [id number] EXAM DATE: ORDERING PHYSICIAN: VIVIANA WHITTEN TECHNOLOGIST: Location: [facility] Patient: Sangeeta Esparza : 1930 Visit/Account:[id number] Date of Sevice: 11/22/2017 CT of the abdomen and pelvis without contrast; CT of the lumbar spine without contrast: Indication: Injury. Technique: Helical CT was performed through the abdomen and pelvis without contrast. Dedicated recons tructed images of the lumbar spine were also obtained. Multiplanar reconstructions are reviewed. One of the following dose optimization techniques was utilized in the performance of this exam: Autom ated exposure control; adjustment of the mA and/or kV according to the patient's size; or use of an i terative reconstruction technique. Specific details can be referenced in the facility's radiology CT exam operational policy. Comparison: 09/30/2017 Lower lung sal[place]ar: Linear fibrotic opacities present in both lungs, without significant change. No ac wanda parenchymal or pleural process is identified. A small/moderate hiatal hernia appears unchanged. Liver: Normal in size, shape, and density. Gallbladder/biliary tree: There are surgical clips related to prior cholecystectomy. The bile ducts a re normal in caliber. Pancreas: Atrophic, but otherwise unremarkable. Spleen: Normal in size, shape, and density. Adrenal glands: Unremarkable and unchanged. Kidneys/urinary bladder: There is bilateral cortical thinning. Small cortical cysts are present. Ther e are no signs of acute deformity or obstruction. The urinary bladder appears homogeneous and unchanged. Intestinal structures: There is chronic diverticulosis in the descending colon and sigmoid colon. The re are no signs of acute diverticulitis. There is no evidence of intestinal obstruction or acute defo rmity. Pelvis: The uterus is absent. There is no evidence of mass or fluid collection in the pelvis. There a re multiple venous varicosities in the lower anterior abdominal wall, of uncertain etiology. There butcher s been no change from the prior study. Aorta and vascular structures: There is mild atherosclerotic calcification in the aorta and iliac art eries. There is no evidence of aneurysm or acute change. Ascites or fluid collections: None seen. Skeletal structures: There is now evidence of a moderate compression deformity of the L1 vertebral candelaria dy. There is also new mild compression deformity of the T12 vertebral body, and there is a minimal d eformity in the upper endplate of the L2 vertebral body. There is no displacement or angulation of th e skeletal structures. There are no signs of retropulsion or narrowing of the spinal canal. There is diffuse demineralization of the skeletal structures, consistent with osteoporosis. Impression: New compression deformities are observed in the lower thoracic and upper lumbar spine, pr esumed acute. There are no signs of displacement, angulation, or retropulsion. No acute visceral abnormalities are identified in the abdomen or pelvis. There is no evidence of free fluid. Report Dictated By: Rush Butler MD at 11/23/2017 12:35 AM Report E-Signed By: Rush Butler MD at 11/23/2017 12:52 AM WSN:[id number]
[2017-11-23] MEDS ORDERED: MORPHINE 4 MG/ML SDV IVP ONE (01:25)
[2017-11-23 02:18] VITALS: BP 131/65
[2017-11-23] MEDS ORDERED: NS(*) 0.9% 1000 ML BAG 1,000 ML IV PRN (02:53)
[2017-11-23] MEDS ORDERED: traMADol 50 MG TAB PO PRN (02:55)
[2017-11-23] MEDS ORDERED: INFLUENZA VIRUS VAC 0.5 ML SYR IM ONLY ONE (02:55)
[2017-11-23] MEDS ORDERED: FLUSH 10 ML SYR IVP PRN (02:55)
[2017-11-23] MEDS ORDERED: fentaNYL CITR 100 MCG/2 ML AMP IVP PRN (03:10)
--- NOTE | 2017-11-23 03:21 | History & Physical ---
History of Present Illness Chief Complaint Fall, back pain History of Present Illness 87yo female with PMHx significant for chronic a-fib, CHF/cor pulmonale, sleep apnea, Parkinson's disease. She reports several falls over past few weeks. She states she has had syncopal/pre-syncopal sensations frequently. Her primary care physician had recently stopped some medications and reduced other medication dosages. She has been having back pain for past several weeks, which has worsened recently. She denies any lower extremity numbness/tingling or urinary incontinence. She has had some generalized weakness, but no focal problems. She was evaluated in the ER and found to have compression fractures of T12, L1, and L2. She was also noted to have changes consistent with possible metastatic malignancy (vs. multiple myeloma) involving her skull and c-spine. She was recommended for admission. History Problems: (1) Seizure Status: Chronic (2) Angina pectoris Status: Chronic (3) Hypertension Status: Chronic (4) Hypothyroid Status: Chronic (5) DVT (deep venous thrombosis) Status: Chronic (6) Cardiac pacemaker Status: Chronic (7) Iron deficiency Status: Chronic (8) Herpes zoster Status: Resolved (9) Parkinsonism Status: Chronic (10) B12 deficiency Status: Chronic (11) Cellulitis of right arm Status: Resolved (12) Right heart failure due to pulmonary hypertension Status: Chronic (13) Depression Status: Chronic (14) Back pain Status: Chronic (15) History of cholecystectomy Status: Resolved (16) History of appendectomy Status: Resolved (17) History of hysterectomy Status: Resolved (18) History of repair of atrial septal defect Status: Resolved (19) Atrial fibrillation/flutter Status: Chronic Home Meds Active Scripts Lactose-Reduced Food (Ensure Original) 237 Ml Liquid, 1 BOTTLE PO DAILY for 30 Days, #30 BOTTLE 11 Refills Lactose FREE 1 bottle as a snack every day, do not replace meals with ensure. Prov:FREDI JENKINS MD 11/06/17 Duloxetine Hcl (CYMBALTA) 20 Mg Capcr, 40 MG PO QDAY for 90 Days, #90 CAP Prov:FREDI JENKINS MD 11/05/17 Lisinopril (LISINOPRIL) 5 Mg Tablet, 0.5 TAB PO DAILY for 90 Days, #90 TAB 4 Refills Prov:FREDI JENKINS MD 11/05/17 Diclofenac Sodium 1% Gel (VOLTAREN 1% GEL) 100 Gm Gel..gram., 1 DAJUAN TP TID for 30 Days, #1 TUBE 6 Refills Prov:FREDI JENKINS MD 10/22/17 Nystatin 100,000 Unit/Gm Top Powder (NYSTATIN 100,000 UNIT/GM TOP POWDER) 15 Gm Powder, 1 DAUJAN TP BID for 30 Days, #1 BOTTLE 6 Refills Prov:FREDI JENKINS MD 10/18/17 Metoprolol Tartrate (METOPROLOL TARTRATE) 50 Mg Tab, 1 TAB PO BID for 90 Days, # 180 TAB 4 Refills Prov:FREDI JENKINS MD 10/04/17 Triamcinolone Acetonide 0.1% Cr 15 Gm Tube (TRIAMCINOLONE ACETONIDE 0.1% CREAM) 15 Gm Cream..g., 1 DAJUAN TP BID Y for RASH for 14 Days, #1 TUBE Prov:FREDI JENKINS MD 09/27/17 Carbidopa/Levodopa (CARBIDOPA-LEVODOPA 25-100 TAB) 1 Each Tablet, 1 EACH PO BID for 90 Days, #270 TAB Prov:FREDI JENKINS MD 09/27/17 Ranitidine Hcl (RANITIDINE HCL) 150 Mg Tablet, 150 MG PO QHS for 90 Days, #90 TAB 3 Refills Prov:FREDI JENKINS MD 09/13/17 Reported Medications Acetaminophen (TYLENOL EXTRA STRENGTH) 500 Mg Tablet, 2 TAB PO TID, CAP 11/05/17 Tramadol Hcl (TRAMADOL HCL) 50 Mg Tablet, 0.5-1 TAB PO Q6h Y for pain, TAB 11/05/17 Ferrous Sulfate (IRON) 325 Mg Tablet, 1 TAB PO DAILY 09/13/17 Ascorbic Acid (VITAMIN C WITH BETO HIPS) 500 Mg Tablet, 1 TAB PO DAILY 08/31/17 Vit A/Vit C/Vit E/Zinc/Copper (PRESERVISION AREDS SOFTGEL) 1 Each Capsule, 1 EACH PO BID, CAPSULE 08/31/17 Oxygen (OXYGEN) Inha, 4 L INH DAILY, L Continuous 08/31/17 Rivaroxaban 15 Mg (XARELTO 15 MG) 15 Mg Tablet, 1 TAB PO QPM 06/03/17 Levothyroxine Sodium (Levothyroxine Sodium) 50 Mcg Tablet, 1 TAB PO DAILY, 0 Refills DO NOT TAKE THIS MEDICATION WITHIN 4 HOURS OF FERROUS SULFATE 04/05/11 Discontinued Scripts Methylprednisolone (METHYLPREDNISOLONE) 4 Mg Tab.ds.pk, 4 MG PO DIRECTED, #1 PACK Prov:FREDI JENKINS MD 11/15/17 Potassium Chloride (POTASSIUM CHLORIDE) 20 Meq Tab.er.prt, 1 TAB PO DAILY for 90 Days, #90 TAB Prov:FREDI JENKINS MD 11/15/17 Furosemide (FUROSEMIDE) 40 Mg Tablet, 0.5 TAB PO DAILY for 90 Days, #45 TAB Prov:FREDI JENKINS MD 11/05/17 Allergies: Coded Allergies: milk (Verified Allergy, Intermediate, UPSET STOMACH, 04/28/17) codeine (Verified Adverse Reaction, Intermediate, MADE HER CONFUSED, WEAK POOR BALANCE, 04/28/17) hydromorphone (Verified Adverse Reaction, Mild, "SHAKY", 11/23/17) Patient History: FH: heart failure MOTHER BROTHER OR SISTER BROTHER OR SISTER BROTHER OR SISTER BROTHER OR SISTER Hx Smoking: No Smoking Status: Never Smoker Exposure to Second Hand Smoke?: No Caffeine Intake: Coffee, Tea, Soda Caffeine/Cups Per Day: 2 C COFFEE AM, TEA OCCASIONAL, SODA 1/DAY Hx Alcohol Use: No Hx Substance Use Disorder: No Social Drug Use: Never Review of Systems Constitutional: No Fever, No Chills Neurological: Syncope, Weakness Eyes: No Vision Change ENT: No Hearing Loss Cardiovascular: No Chest Pain Respiratory: Shortness of Breath Gastrointestinal: No Nausea, No Vomiting, Constipation Genitourinary: No Dysuria Musculoskeletal: Pain Psychiatric: Depression Exam Vital Signs Vital Signs Date Time Temp Pulse Resp B/P (MAP) Pulse Ox O2 Delivery O2 Flow Rate FiO2 11/23/17 02:18 97.5 104 16 131/65 (87) 97 Nasal Cannula 4.0 General Appearance: Alert, Awake, Other (hard of hearing) Neuro: Other (generalized weakness/no focal deficits) ENT: Other (decreased facial expressions) Neck: No Masses, Other (short/thick difficult to assess for JVD) Cardiovascular: Other (Irregular with systolic murmur) Respiratory: Other (fairly clear bilaterally) Chest: No Tenderness, Other (pacemaker left upper chest) GI: Abd Soft and Non-Tender : No CVA Tenderness Extremities: Warm, Perfused, Edema Integumentary: Generalized Fragile Skin, Other (several scattered ecchymoses) Medical Decision Making Data Points Result Diagram: 11/22/17213511/22/172135 Item Value Date Time Albumin 4.1 g/dl 11/22/172135 Total Protein 8.5 g/dl H 11/22/172135 Alkaline Phosphatase 102 U/L 11/22/172135 Alanine Aminotransferase (ALT/SGPT) 30 U/L 11/22/172135 Aspartate Amino Transf (AST/SGOT) 36 U/L H 11/22/172135 Total Bilirubin 0.4 mg/dl 11/22/172135 Calcium Level 9.6 mg/dl 11/22/172135 Urine Mucus None /HPF 11/23/17 0011 Urine Hyaline Casts Few /LPF 11/23/17 0011 Urine Bacteria Negative /HPF 11/23/17 0011 Urine Squamous Epithelial Cells Few /LPF 11/23/17 0011 Urine WBC 3 /HPF 11/23/17 0011 Urine RBC 1 /HPF 11/23/17 0011 Urine Leukocyte Esterase Moderate H 11/23/17 0011 Urine Urobilinogen Negative mg/dL 11/23/17 0011 Urine Bilirubin Negative 11/23/17 0011 Urine Nitrite Negative 11/23/17 0011 Urine Blood Negative 11/23/17 0011 Urine Ketones Negative mg/dL 11/23/17 0011 Urine Glucose (UA) Negative mg/dL 11/23/17 0011 Urine Protein Negative mg/dL 11/23/17 0011 Urine Specific [place] 1.018 11/23/17 0011 Urine pH 5.0 pH 11/23/17 0011 Urine Clarity Clear 11/23/17 0011 Urine Color Yellow 11/23/17 0011 Activated Partial Thromboplast Time 27 seconds 11/22/172135 Prothromb Time International Ratio 1.01 11/22/172135 Prothrombin Time 13.3 seconds 11/22/172135 Assessment and Plan Problems: (1) Compression fracture of thoracolumbar vertebra Status: Acute Assessment & Plan: She appears to have had fairly acute compression fractures at T12, L1, and L2. She may also have metastatic disease or possibly multiple myeloma as well. Will admit for pain control, PT/OT. Will check serum protein electrophoresis. Further evaluation/treatment as needed. (2) Atrial fibrillation/flutter Status: Chronic Assessment & Plan: She has been managed with metoprolol and Xarelto. She also has pacemaker in place. (3) Hypothyroid Status: Chronic Assessment & Plan: She is on low dose replacement. Will continue and check TSH. (4) Parkinson disease Status: Chronic Assessment & Plan: Continue Sinemet. (5) Hyperkalemia Status: Acute Assessment & Plan: Most likely due to her ROSEY inhibitor therapy. Will stop the lisinopril. Watch labs. (6) Right heart failure due to pulmonary hypertension Status: Chronic Assessment & Plan: She actually appears to be fairly well compensated at this time. Continue oxygen therapy. Monitor. Copies to: FREDI JENKINS MD Venous Thromboembolism Antithrombotics Is Pt On Any Antithrombotics?: Yes Heart Failure Ejection Fraction %: 63 RVSP (mmHg): 56 NYHA Class: III Is Patient on ROSEY Inhibitor?: Yes Is Patient on Beta Nathen?: Yes Admission Weight: 229 Exam Sepsis Risk: No Definite Risk DARRIN LATHAM MD Nov 23, 2017 03:21
[2017-11-23] MEDS: LEVOTHYROXINE SOD 0.05 MG TAB PO SCH (06:23)
[2017-11-23 08:11] VITALS: BP 133/72
[2017-11-23 08:57] VITALS: Ht 152.4 cm; Wt 80.7 kg
[2017-11-23] MEDS: METOPROLOL TART 50 MG TAB PO SCH ×2 (09:00→20:25)
[2017-11-23] MEDS: DULoxetine HCL 20 MG CAPCR PO SCH (09:00)
[2017-11-23] MEDS: CARBIDOPA/LEVODOPA 25/100 TAB PO SCH ×2 (09:00→20:24)
[2017-11-23] MEDS ORDERED: LIDOCAINE 5% PATCH TP PRN (10:30)
[2017-11-23 11:22] VITALS: BP 100/63
--- NOTE | 2017-11-23 12:25 | Medical Nutrition Therapy ---
Nutrition Anthropometrics Height (Inches): 60.00 Height (Calculated Centimeters: 152.427870 Weight (Pounds): 178 Weight (Calculated Kilograms): 80.796 Asad Nutrition Score: Adequate Asad Nutrition Risk Score: 15 Dietary Referral Nutrition Risk Factors: Unplanned Loss >10lbs Nutrition Risk Comment: Nutritional Diagnosis Nutritional Risk Acuity 2: Unintended Wt Loss >5%/mo, Head/Neck/GI Cancer Nutritional Risk Acuity 3: Fx & > 80 yrs, Cancer Nutritional Risk Acuity 4: Good Appetite Past Medical History: CHF, liver disease, Parkinson disease, Hypothyroid, HTN, A-fib, DVT, pacemaker, sleep apnea, iron deficiency, B12 deficiency Nutritional Acuity: 2-Moderate Nutrition Diagnosis: Inadequate Food Intake Nutrition Etiology: Physiological Causes Nutrition Problem/Etiology/Sym: Inadequate food intake r/t physiological causes AEB wt. loss of 7% in past 1.5 mo. Energy Requirement: 1811 (M. St-jeor x 1.3 AF x 1.2 SF) Protein Requirement: 80 Fluid Requirement: 1811 (1ml/kg) Diet Type: Diet as Tolerated TERRY/REG Nutrition Intervention: Cont diet as ordered, Encourage intake Additional Diet Restrictions: OFFER PROTEIN SUPPLEMENT WITH MEALS Nutrition Monitoring & Eval RD Patient Assessment Time: [address] Assessment Type: RD Assessment Patient Nutrition Acuity: 2-Moderate Follow Up Date: Nov 26, 2017 Nutritional Comment: 11/23 Pt. came in w/ hx of several falls in past wk, fainting, back pain and was found to have compression fractures. notes pt may also have cancer in skull and c-spine. Pt has lost 14# or 7% body wt. in past 1.5 mo. TERRY however no intake recorded yet. Concern for unintended wt. loss. Alb WNL. BUN 24, K+ high at 5.2. Na+ low 134. Pt on IV fluids. Dr hunt also state B12 and iron deficiency. Recommended protein supplement. Will monitor intake, labs, wt. changes, etc. - KALIA GHOSH Nov 23, 2017 09:24
[2017-11-23 16:32] VITALS: BP 122/76
[2017-11-23] MEDS ORDERED: RIVAROXABAN 10 MG TAB PO SCH (17:00)
--- NOTE | 2017-11-23 17:00 | RADIOLOGY IMAGING REPORT ---
FACILITY: [facility] PATIENT NAME: Sangeeta Esparza : 1930 MR: [id number] V: [id number] EXAM DATE: ORDERING PHYSICIAN: CHAIM MEMBRENO TECHNOLOGIST: Location: [facility] [place] Patient: Sangeeta Esparza : 1930 Visit/Account:[id number] Date of Sevice: 11/23/2017 Carotid ultrasound Indication: Syncope Comparison:None available Findings: On the right : Peak systolic velocity of the right common carotid artery is 151 cm/s Peak systolic velocity of the right internal carotid artery is 112 cm/s There is normal antegrade flow of the right vertebral artery. The right ICA/CCA ratio is 0.7 On the left: Peak systolic velocity of the left common carotid artery is 76 cm/s Peak systolic velocity of the left internal carotid artery is 67 cm/s There is normal antegrade flow of the left vertebral artery. The left ICA/CCA ratio is 0.9 Note is made of a significantly tortuous common carotid arteries bilaterally. Note is made of an irre gular heartbeat. No significant atherosclerosis. IMPRESSION: 1. No hemodynamically significant stenosis of the bilateral common carotid arteries and bilateral int ernal carotid arteries as above. 2. Nonspecific velocity asymmetry between the right and left carotid arteries, greater on the right. Findings could be related to significant tortuosity of the common carotid arteries. Findings could al so be normal or due to proximal stenosis. Carotid % stenosis: Velocity criteria are extrapolated from diameter data as defined by the Society o f Radiologists in Ultrasound Consensus Conference, Radiology 2003; 229; 340-346 Report Dictated By: Isaias Bowman MD at 11/23/2017 4:51 PM Report E-Signed By: Isaias Bowman MD at 11/23/2017 4:56 PM WSN:[id number]
[2017-11-23 19:54] VITALS: BP 115/62
[2017-11-23] MEDS ORDERED: RANITIDINE HCL 150 MG TAB PO SCH (21:00)
[2017-11-23] MEDS ORDERED: PATCH REMOVAL 1 EA TP SCH (21:00)
[2017-11-23] MEDS: POLYETHYLENE GLYCOL 17 GM PKT PO SCH (21:45)
[2017-11-23] MEDS: DOCUSATE SODIUM 100 MG CAP PO SCH (21:45)
[2017-11-23] MEDS ORDERED: BISACODYL 5 MG TABEC PO PRN (21:45)
[2017-11-23 23:18] VITALS: BP 128/92
[2017-11-24 03:37] VITALS: BP 131/72
[2017-11-24] MEDS: LEVOTHYROXINE SOD 0.05 MG TAB PO SCH (05:39)
[2017-11-24 06:25] LABS: PLATELET COUNT, AUTOMATED 155 K/uL (150-450)
[2017-11-24 07:11] VITALS: BP 143/87
[2017-11-24] MEDS: DULoxetine HCL 20 MG CAPCR PO SCH (08:27)
[2017-11-24] MEDS: CARBIDOPA/LEVODOPA 25/100 TAB PO SCH (08:27)
[2017-11-24] MEDS: METOPROLOL TART 50 MG TAB PO SCH (08:27)
[2017-11-24] MEDS: DOCUSATE SODIUM 100 MG CAP PO SCH (08:27)
[2017-11-24] MEDS: POLYETHYLENE GLYCOL 17 GM PKT PO SCH (08:28)
[2017-11-24] MEDS ORDERED: LIDO700A19 TP (09:48)
--- NOTE | 2017-11-24 10:22 | Hospitalist Depart ---
Discharge Summary Reason for Hosp/Final Diag: (1) Compression fracture of thoracolumbar vertebra Status: Acute Hospital Course & Plan: She presented with acute back pain. A CT scan showed fairly acute compression fractures at T12, L1, and L2. Her pain has been controlled with lidocaine patches. She was evaluated by physical therapy and was recommended for home health therapy. 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 Testing for multiple myeloma have been ordered and are currently pending. A CT scan of the abdomen and pelvis was negative. She will likely require follow up with oncology for further evaluation. (3) Atrial fibrillation/flutter Status: Chronic Hospital Course & Plan: She has been managed with metoprolol and Xarelto. She also has pacemaker in place. (4) Hypothyroid Status: Chronic Hospital Course & Plan: She is on low dose replacement. A TSH was normal. (5) Parkinson disease Status: Chronic Hospital Course & Plan: She is on chronic treatment with Sinemet. (6) Hyperkalemia Status: Acute Hospital Course & Plan: Her lisinopril was discontinued. (7) Right heart failure due to pulmonary hypertension Status: Chronic Hospital Course & Plan: A previous echocardiogram has shown findings consistent with pulmonary hypertension. She did have a near syncopal event with a therapy evaluation. Her echocardiogram was repeated and a carotid ultrasound was done. She has since been asymptomatic. Departure Weight (Pounds): 178 Weight (Ounces): 2.0 Result Diagram: 11/24/17 0548 11/24/1748 Condition: Improved Discharge: Home, Self Care PT/OT Follow Up For: PT For Strengthening, OT For ADL's Home Health RN Follow Up For: Medication Management, Nursing Assessment Home Health [employer] Follow Up For: ADL Assistance Discharge Instructions Home Meds Active Scripts Lidocaine (Lidocaine) 5 % Adh..patch, 1 EACH TP QDAY Y for BACK PAIN, #30 PATCH Prov:IRVIN KELLEY DO 11/24/17 Lactose-Reduced Food (Ensure Original) 237 Ml Liquid, 1 BOTTLE PO DAILY for 30 Days, #30 BOTTLE 11 Refills Lactose FREE 1 bottle as a snack every day, do not replace meals with ensure. Prov:FREDI JENKINS MD 11/06/17 Duloxetine Hcl (CYMBALTA) 20 Mg Capcr, 40 MG PO QDAY for 90 Days, #90 CAP Prov:FREDI JENKINS MD 11/05/17 Diclofenac Sodium 1% Gel (VOLTAREN 1% GEL) 100 Gm Gel..gram., 1 DAJUAN TP TID for 30 Days, #1 TUBE 6 Refills Prov:FREDI JENKINS MD 10/22/17 Nystatin 100,000 Unit/Gm Top Powder (NYSTATIN 100,000 UNIT/GM TOP POWDER) 15 Gm Powder, 1 DAJUAN TP BID for 30 Days, #1 BOTTLE 6 Refills Prov:FREDI JENKINS MD 10/18/17 Metoprolol Tartrate (METOPROLOL TARTRATE) 50 Mg Tab, 1 TAB PO BID for 90 Days, # 180 TAB 4 Refills Prov:FREDI JENKINS MD 10/04/17 Triamcinolone Acetonide 0.1% Cr 15 Gm Tube (TRIAMCINOLONE ACETONIDE 0.1% CREAM) 15 Gm Cream..g., 1 DAJUAN TP BID Y for RASH for 14 Days, #1 TUBE Prov:FREDI JENKINS MD 09/27/17 Carbidopa/Levodopa (CARBIDOPA-LEVODOPA 25-100 TAB) 1 Each Tablet, 1 EACH PO BID for 90 Days, #270 TAB Prov:FREDI JENKINS MD 09/27/17 Ranitidine Hcl (RANITIDINE HCL) 150 Mg Tablet, 150 MG PO QHS for 90 Days, #90 TAB 3 Refills Prov:FREDI JENKINS MD 09/13/17 Reported Medications Acetaminophen (TYLENOL EXTRA STRENGTH) 500 Mg Tablet, 2 TAB PO TID, CAP 11/05/17 Tramadol Hcl (TRAMADOL HCL) 50 Mg Tablet, 0.5-1 TAB PO Q6h Y for pain, TAB 11/05/17 Ferrous Sulfate (IRON) 325 Mg Tablet, 1 TAB PO DAILY 09/13/17 Ascorbic Acid (VITAMIN C WITH BETO HIPS) 500 Mg Tablet, 1 TAB PO DAILY 08/31/17 Vit A/Vit C/Vit E/Zinc/Copper (PRESERVISION AREDS SOFTGEL) 1 Each Capsule, 1 EACH PO BID, CAPSULE 08/31/17 Oxygen (OXYGEN) Inha, 4 L INH DAILY, L Continuous 08/31/17 Rivaroxaban 15 Mg (XARELTO 15 MG) 15 Mg Tablet, 1 TAB PO QPM 06/03/17 Levothyroxine Sodium (Levothyroxine Sodium) 50 Mcg Tablet, 1 TAB PO DAILY, 0 Refills DO NOT TAKE THIS MEDICATION WITHIN 4 HOURS OF FERROUS SULFATE 04/05/11 Discontinued Scripts Lisinopril (LISINOPRIL) 5 Mg Tablet, 0.5 TAB PO DAILY for 90 Days, #90 TAB 4 Refills Prov:FREDI JENKINS MD 11/05/17 Methylprednisolone (METHYLPREDNISOLONE) 4 Mg Tab.ds.pk, 4 MG PO DIRECTED, #1 PACK Prov:FREDI JENKINS MD 11/15/17 Potassium Chloride (POTASSIUM CHLORIDE) 20 Meq Tab.er.prt, 1 TAB PO DAILY for 90 Days, #90 TAB Prov:FREDI JENKINS MD 11/15/17 Furosemide (FUROSEMIDE) 40 Mg Tablet, 0.5 TAB PO DAILY for 90 Days, #45 TAB Prov:FREDI JENKINS MD 11/05/17 Diet: Regular Activity: As Tolerated Copies to: FREDI JENKINS MD Venous Thromboembolism Antithrombotics Is Pt On Any Antithrombotics?: Yes Heart Failure Ejection Fraction %: 63 RVSP (mmHg): 56 NYHA Class: III Is Patient on ROSEY Inhibitor?: Yes Is Patient on Beta Nathen?: Yes Admission Weight: 229 [id number] Certification Face to Face Home Health Certification Institutional Provider conducted the [id number] encounter. Electronic Undersigning Physician Certifies Home Health. I certify that the patient has been under my care and that I had a [id number] encounter that meets the physician [id number] encounter requirements with this patient. This patient is home-bound due to safety issues and continues to require assistance with ADL's. I certify that based on my findings, that Nursing, Aides and the following Home Health services are medically necessary: Medical Necessity: Nursing, Rehab Date Face to Face Conducted: Nov 24, 2017 IRVIN KELLEY DO Nov 24, 2017 10:22
[2017-11-27] MEDS ORDERED: CALC3.7S10 NS (16:50)
[2017-12-04] MEDS ORDERED: LEVO50TA86 PO (14:09)
== END 2017-11-24 12:52 | disposition home health service (06) ==
LOC: ER 19:42 → OBSVTOIN 11-23 01:26 → MED 11-23 01:26 → INTOOBSV 11-23 01:26
PROVIDERS: ADMIT Internal Medicine; ATTEND Internal Medicine
DX: S22.089A Unspecified fracture of T11-T12 vertebra, initial encounter for closed fracture (principal); W18.30XA Fall on same level, unspecified, initial encounter; I48.2 Chronic atrial fibrillation; Z79.01 Long term (current) use of anticoagulants; E03.9 Hypothyroidism, unspecified; G20 Parkinson's disease; E87.5 Hyperkalemia; I11.0 Hypertensive heart disease with heart failure
CPT/HCPCS: 36415; 36416; 70450; 70486; 71045; 72125; 72131; 73030; 74176; 81001; 82948; 84165; 84443; 85025; 85610; 85730; 87088; 93005; 93306; 93880; 96360; 96361; 96372; 96374; 97116; 97161; 97166; 97535; 99285; A4344; A9270; G0378; J1170; J3010; J7030; 82040; 82247; 82310; 82374; 82435; 82565; 82947; 84075; 84132; 84155; 84295; 84450; 84460; 84520; Q9967

== ENCOUNTER → 2017-11-22 | Outpatient (CLI) | payer MEDICARE, MEDICAID ==
[~2017-11-22] MED LIST changes: +ACET500T68 PO; +CALC3.7S10 NS; +DUL20 PO; +LACT237L63 PO; +LEVO50TA86 PO; +LIDO700A19 TP; +METH4TAB66 PO
[2017-11-23 08:57] VITALS: BMI 34.8
== END ==
LOC: AMB 19:09
PROVIDERS: ATTEND Nurse Practitioner
DX: M54.6 Pain in thoracic spine (principal); R09.02 Hypoxemia; W01.190A Fall on same level from slipping, tripping and stumbling with subsequent striking against furniture, initial encounter; Y92.018 Other place in single-family (private) house as the place of occurrence of the external cause
CPT/HCPCS: A0425; A0427

== ENCOUNTER 2017-12-27 00:44 | Day surgery (SDC) | payer MEDICARE, MEDICAID ==
[2017-11-23 08:57] VITALS: Ht 154.9 cm; Wt 85.7 kg
[~2017-12-27] VITALS: Ht 154.9 cm; Wt 85.7 kg
[2017-12-27] VITALS (7 sets, daily range): BP systolic 133–164; BP diastolic 81–113
[~2017-12-27 00:44] MED LIST changes: +CALC3.7S10 NS; +LEVO50TA86 PO; +LIDO700A19 TP; +PHEN100T27 PO; -POTA20PA10 PO; +POTA20PA31 PO
[2017-12-27] MEDS ORDERED: HEPARIN SOD LCK FLSH 100 UN/ML ONE (07:19)
[2017-12-27] MEDS ORDERED: ONDANSETRON 4 MG/2 ML VIAL ONE (07:23)
[2017-12-27] MEDS ORDERED: fentaNYL CITR 100 MCG/2 ML AMP ONE (07:23)
[2017-12-27] MEDS ORDERED: PROPOFOL EMUL(*) 10MG/ML 20 ML 40 ML ONE (07:23)
[2017-12-27] MEDS ORDERED: KETAMINE HCL 200 MG/20 ML MDV ONE (07:24)
[2017-12-27 07:39] LABS: PLATELET COUNT, AUTOMATED 178 K/uL (150-450)
[2017-12-27] MEDS ORDERED: ROPIVACAINE 0.5% 20 ML VIAL ONE (07:45)
--- NOTE | 2017-12-27 08:19 | Short(Outpt) Discharge Summary ---
Discharge Summary Reason for Hosp/Final Diag: (1) Plasma cell dyscrasia Status: Chronic Hospital Course & Plan: Bone marrow biopsy completed without problems. Departure Discharge to: Home, Self Care Discharge Instructions Home Meds Active Scripts Phenazopyridine Hcl (PHENAZOPYRIDINE HCL) 100 Mg Tablet, 100 MG PO TID for 2 Days, #6 TAB Prov:FREDI JENKINS MD 12/26/17 Levothyroxine Sodium (LEVOTHYROXINE SODIUM) 50 Mcg Tablet, 1 TAB PO QDAY for 90 Days, #90 TAB 4 Refills Prov:FREDI JENKINS MD 12/04/17 Calcitonin,[place],Synthetic (CALCITONIN-SALMON) 3.7 Ml Coulters.pump, 3.7 ML NS DAILY for 30 Days, #1 BOT one spray into one nostril daily, alternate nastril every other day Prov:FREDI JENKINS MD 11/27/17 Lactose-Reduced Food (Ensure Original) 237 Ml Liquid, 1 BOTTLE PO DAILY for 30 Days, #30 BOTTLE 11 Refills Lactose FREE 1 bottle as a snack every day, do not replace meals with ensure. Prov:FREDI JENKINS MD 11/06/17 Duloxetine Hcl (CYMBALTA) 20 Mg Capcr, 40 MG PO QDAY for 90 Days, #90 CAP Prov:FREDI JENKINS MD 11/05/17 Diclofenac Sodium 1% Gel (VOLTAREN 1% GEL) 100 Gm Gel..gram., 1 DAJUAN TP TID for 30 Days, #1 TUBE 6 Refills Prov:FREDI JENKINS MD 10/22/17 Nystatin 100,000 Unit/Gm Top Powder (NYSTATIN 100,000 UNIT/GM TOP POWDER) 15 Gm Powder, 1 DAJUAN TP BID for 30 Days, #1 BOTTLE 6 Refills Prov:FREDI JENKINS MD 10/18/17 Metoprolol Tartrate (METOPROLOL TARTRATE) 50 Mg Tab, 1 TAB PO BID for 90 Days, #180 TAB 4 Refills Prov:FREDI JENKINS MD 10/04/17 Triamcinolone Acetonide 0.1% Cr 15 Gm Tube (TRIAMCINOLONE ACETONIDE 0.1% CREAM) 15 Gm Cream..g., 1 DAJUAN TP BID PRN for RASH for 14 Days, #1 TUBE Prov:FREDI JENKINS MD 09/27/17 Carbidopa/Levodopa (CARBIDOPA-LEVODOPA 25-100 TAB) 1 Each Tablet, 1 EACH PO BID for 90 Days, #270 TAB Prov:FREDI JENKINS MD 09/27/17 Ranitidine Hcl (RANITIDINE HCL) 150 Mg Tablet, 150 MG PO QHS for 90 Days, #90 TAB 3 Refills Prov:FREDI JENKINS MD 09/13/17 Reported Medications Acetaminophen (TYLENOL EXTRA STRENGTH) 500 Mg Tablet, 2 TAB PO TID, CAP 11/05/17 Tramadol Hcl (TRAMADOL HCL) 50 Mg Tablet, 0.5-1 TAB PO Q6h PRN for pain, TAB 11/05/17 Ferrous Sulfate (IRON) 325 Mg Tablet, 1 TAB PO DAILY 09/13/17 Ascorbic Acid (VITAMIN C WITH BETO HIPS) 500 Mg Tablet, 1 TAB PO DAILY 08/31/17 Vit A/Vit C/Vit E/Zinc/Copper (PRESERVISION AREDS SOFTGEL) 1 Each Capsule, 1 EACH PO BID, CAPSULE 08/31/17 Oxygen (OXYGEN) Inha, 3 L INH DAILY, L Continuous 08/31/17 Rivaroxaban 15 Mg (XARELTO 15 MG) 15 Mg Tablet, 1 TAB PO QPM 06/03/17 Diet: Regular Activity: As Tolerated Special Instructions: You may remove the band-aid on 12/29/17, then you can shower. After removing the band-aid, you can leave the incision open to air but leave the steristrip in place until it falls off on its own. IRVIN GARCIA MD Dec 27, 2017 08:19
--- NOTE | 2017-12-27 08:32 | Post Operative Progress Note ---
Post Operative Progress Note Date: Dec 27, 2017 Time: 08:28 Surgeon: Jasper Dictation number: [id number] Anesthesia: TIVA by Dr. Alvarenga Pre-Op Diagnosis: Plasma cell dyscrasia Post-Op Diagnosis: SHERRIE Findings: None Procedure(s): Bone marrow biopsy Specimen Removed:(May be N/A): Bone marrow Cortical bone core sample Complications: None Fluids: See anesthesia record Estimated Blood Loss: Minimal Date OP Note Dictated: Dec 27, 2017 Time OP Note Dictated: 08:29 IRVIN GARCIA MD Dec 27, 2017 08:32
--- NOTE | 2017-12-27 09:39 | OPERATIVE REPORT 1 ---
EVENT DATE: December 27, 2017 SURGEON: LUIS A Ledesma ANESTHESIOLOGIST: Esvin Alvarenga M.D. ANESTHESIA: TIVA PREOPERATIVE DIAGNOSIS Plasma cell dyscrasia. POSTOPERATIVE DIAGNOSIS Plasma cell dyscrasia. PROCEDURE PERFORMED Bone marrow biopsy. COMPLICATIONS None. CONDITION Stable. ESTIMATED BLOOD LOSS Minimal. INDICATIONS This is an 87-year-old female under the care of the hematologists and they have requested a bone marrow biopsy to help in their workup of her blood abnormalities. DESCRIPTION OF PROCEDURE The patient was brought to the operating room and placed in the left lateral decubitus position on the [place] and TIVA anesthesia was administered and her right posterior superior iliac spine overlying skin was prepped and draped in the sterile fashion. A time-out was completed. I injected the skin with 0.5% ropivacaine plain and then down into the periosteum. I then used the aspiration needle and accessed the marrow cavity and aspirated 20 mL of marrow into the heparinated syringe and passed this directly to the medical laboratory technician, who processed it and confirmed it was a good sample. I then use the core needle and removed a 1 cm core of bone and this was given to the medical laboratory technician as well. Her skin was cleaned and dried and steri-strips applied over the stab incision and this was covered with a band-aid. She was then placed in the supine position on the table to put pressure on the site. She was then brought to the recovery area in good condition, having tolerated the procedure without any apparent problems. MELISA
[2017-12-27] MEDS ORDERED: NORMOSOL R SOLN(*) 1000 ML BAG 1,000 ML IV PRN (09:40)
[2017-12-28] MEDS ORDERED: SULF-198 PO (15:35)
[2017-12-28] MEDS ORDERED: RIVA15TA PO (15:43)
== END 2017-12-27 10:38 | disposition home health service (06) ==
LOC: OR 00:44
PROVIDERS: ATTEND Surgery
DX: E88.09 Other disorders of plasma-protein metabolism, not elsewhere classified (principal); I10 Essential (primary) hypertension; I48.2 Chronic atrial fibrillation; G20 Parkinson's disease; I50.9 Heart failure, unspecified
CPT/HCPCS: 36416; 38221; 81001; 85025; 87088; 87205; J1642; J2405; J2704; J2795; J3010; J3490

== ENCOUNTER 2018-01-02 08:41 | Emergency (ER) | payer MEDICARE, MEDICAID ==
[2017-11-23 08:57] VITALS: Wt 90.7 kg
[~2018-01-02 08:41] MED LIST changes: -ALBU2.5V36 INH; -ASPI81TA94 PO; -CITA-157 PO; -DILT120C4 PO; -DOCU-416 PO; -DULO20CA3 PO; -MULT-820 PO
[2018-01-02] MEDS ORDERED: NS(*) 0.9% 500 ML BAG 500 ML IV ONE (08:46)
--- NOTE | 2018-01-02 09:00 | ER Report ---
History and Physical Time Seen By MD: 08:50 Hx. of Stated Complaint: PT HAS LOSS OF VISION ON L SIDE, L SIDED WEAKNESS, LAST NORM PER FAMILY AT 0300 HPI/ROS CHIEF COMPLAINT: Altered mental status HISTORY OF PRESENT ILLNESS: Patient is an 87-year-old female who is brought to the emergency department via EMS for concerns of left-sided weakness and left visual field deficit along with confusion. Patient was last seen by family normal at 3 AM this morning. Ambulance was called around 8:30 this morning when family saw the change in her. Prehospital blood sugar was 90 mg/dL. patient herself is confused and is a poor historian. Additional history is obtained from the patient's daughter. He started confirms that her brother woke up around 3 this morning and persisted patient to the bathroom. At that time she both ment ally and physically appeared normal to him. Around 6:30 this morning she was in her chair and leaning over to the left side. She was assisted back to a straight position and it was felt at the time she was slumping because she was tired. At 8:30 AM when she was reevaluated she was again slumping but this time she was confused stating that she "could not open her eyes" she further stated that she was unable to find the bathroom that "someone had moved it". Family noticed that she was continually slumping to the left side so they called EMS for further evaluation. REVIEW OF SYSTEMS: Patient is confused and is unable to provide a reliable review of systems at this time. Allergies: Coded Allergies: milk (Verified Allergy, Intermediate, UPSET STOMACH, 01/02/18) Penicillins (Verified Allergy, Mild, rash, 01/02/18) codeine (Verified Adverse Reaction, Intermediate, MADE HER CONFUSED, WEAK POOR BALANCE, 01/02/18) hydromorphone (Verified Adverse Reaction, Mild, "SHAKY", 01/02/18) lidocaine (Verified Adverse Reaction, Unknown, Rash, 01/02/18) Home Meds Active Scripts Levothyroxine Sodium (LEVOTHYROXINE SODIUM) 50 Mcg Tablet, 1 TAB PO QDAY for 90 Days, #90 TAB 4 Refills Prov:FREDI JENKINS MD 12/04/17 Nystatin 100,000 Unit/Gm Top Powder (NYSTATIN 100,000 UNIT/GM TOP POWDER) 15 Gm Powder, 1 DAJUAN TP BID for 30 Days, #1 BOTTLE 6 Refills Prov:FREDI JENKINS MD 10/18/17 Metoprolol Tartrate (METOPROLOL TARTRATE) 50 Mg Tab, 1 TAB PO BID for 90 Days, #180 TAB 4 Refills Prov:FREDI JENKINS MD 10/04/17 Triamcinolone Acetonide 0.1% Cr 15 Gm Tube (TRIAMCINOLONE ACETONIDE 0.1% CREAM) 15 Gm Cream..g., 1 DAJUAN TP BID PRN for RASH for 14 Days, #1 TUBE Prov:FREDI JENKINS MD 09/27/17 Carbidopa/Levodopa (CARBIDOPA-LEVODOPA 25-100 TAB) 1 Each Tablet, 1 EACH PO BID for 90 Days, #270 TAB Prov:FREDI JENKINS MD 09/27/17 Ranitidine Hcl (RANITIDINE HCL) 150 Mg Tablet, 150 MG PO QHS for 90 Days, #90 TAB 3 Refills Prov:FREDI JENKINS MD 09/13/17 Reported Medications Rivaroxaban 20 Mg (XARELTO 20 MG) 20 Mg Tablet, 20 MG PO QHS, TAB 01/02/18 Potassium Chloride (POTASSIUM CHLORIDE) 20 Meq Tab.er.prt, 20 MEQ PO BID 01/02/18 Multivitamin (MULTIVITAMINS) 1 Each Tablet, 1 EACH PO QDAY 01/02/18 Loratadine (LORATADINE) 10 Mg Tablet, 10 MG PO QDAY 01/02/18 Lisinopril (LISINOPRIL) 5 Mg Tablet, 5 MG PO QDAY, TAB 01/02/18 Furosemide (FUROSEMIDE) 40 Mg Tablet, 1 TAB PO QDAY, TAB 01/02/18 Duloxetine HCl (Duloxetine HCl) 20 Mg Capsule.dr, 1 CAP PO QDAY 01/02/18 Docusate Sodium (COLACE) 100 Mg Capsule, 100 MG PO BID PRN for CONSTIPATION, CAPSULE 01/02/18 Diltiazem Hcl (DILTIAZEM ER) 120 Mg Capsule.er, 120 MG PO QDAY 01/02/18 Citalopram Hydrobromide (CELEXA) 40 Mg Tablet, 60 MG PO QDAY, #5 TAB 01/02/18 Aspirin (ASPIRIN) 81 Mg Tab.chew, 81 MG PO QDAY, TAB.CHEW 01/02/18 Albuterol Sulfate 0.083% (ALBUTEROL SULFATE 0.083%) 2.5 Mg/3 Ml Vial.neb, 2.5 MG INH QHS, INH 01/02/18 Acetaminophen (TYLENOL EXTRA STRENGTH) 500 Mg Tablet, 2 TAB PO TID, CAP 11/05/17 Ferrous Sulfate (IRON) 325 Mg Tablet, 1 TAB PO DAILY 09/13/17 Vit A/Vit C/Vit E/Zinc/Copper (PRESERVISION AREDS SOFTGEL) 1 Each Capsule, 1 EACH PO BID, CAPSULE 08/31/17 Oxygen (OXYGEN) Inha, 3 L INH DAILY, L Continuous 08/31/17 Discontinued Reported Medications Tramadol Hcl (TRAMADOL HCL) 50 Mg Tablet, 0.5-1 TAB PO Q6h PRN for pain, TAB 11/05/17 Ascorbic Acid (VITAMIN C WITH BETO HIPS) 500 Mg Tablet, 1 TAB PO DAILY 08/31/17 Discontinued Scripts Rivaroxaban 15 Mg (XARELTO 15 MG) 15 Mg Tablet, 1 TAB PO QPM for 30 Days, #30 TAB Prov:FREDI JENKINS MD 12/28/17 Sulfamethoxazole/Trimet 800-160 Mg Tab (BACTRIM DS TABLET) 1 Each Tablet, 1 TAB PO Q12H for 3 Days, #6 TAB Prov:FREDI JENKINS MD 12/28/17 Phenazopyridine Hcl (PHENAZOPYRIDINE HCL) 100 Mg Tablet, 100 MG PO TID for 2 Days, #6 TAB Prov:FREDI JENKINS MD 12/26/17 Calcitonin,Whigham,Synthetic (CALCITONIN-SALMON) 3.7 Ml [place].pump, 3.7 ML NS DAILY for 30 Days, #1 BOT one spray into one nostril daily, alternate nastril every other day Prov:FREDI JENKINS MD 11/27/17 Lactose-Reduced Food (Ensure Original) 237 Ml Liquid, 1 BOTTLE PO DAILY for 30 Days, #30 BOTTLE 11 Refills Lactose FREE 1 bottle as a snack every day, do not replace meals with ensure. Prov:FREDI JENKINS MD 11/06/17 Duloxetine Hcl (CYMBALTA) 20 Mg Capcr, 40 MG PO QDAY for 90 Days, #90 CAP Prov:FREDI JENKINS MD 11/05/17 Diclofenac Sodium 1% Gel (VOLTAREN 1% GEL) 100 Gm Gel..gram., 1 DAJUAN TP TID for 30 Days, #1 TUBE 6 Refills Prov:FREDI JENKINS MD 10/22/17 Past Medical/Surgical History Past medical history for Parkinson's disease, history of atrial fibrillation on Xarelto; history of CHF, hypertension, pacemaker, sleep apnea, depression, cholecystectomy, hysterectomy, carpal tunnel release, closed compression fractu re of the thoracic O: Lumbar vertebrae with routine healing, patient is currently undergoing workup for suspected multiple myeloma. A biopsy had been performed. Results of which are not yet known. Patient has a POLST which states the patient is a DO NOT RESUSCITATE and do not intubate, she does requested selective medical treatment including IV fluids, monitoring analyst, less invasive airway support including CPAP, she also requests trial period of artificial nutrition by tube. This POLST form was dated 09/27/2017 Hx Smoking: No Smoking Status: Never Smoker Exposure to Second Hand Smoke?: No Hx Substance Use Disorder: No Hx Alcohol Use: No Constitutional Vital Sign - Last 24 Hours 01/02/18 01/02/18 01/02/18 01/02/18 08:41 08:41 08:41 09:01 Temp 98.2 Pulse 130 Resp 20 B/P (MAP) 92/76 167/110 (129) Pulse Ox 100 85 O2 Delivery Nasal Cannula O2 Flow Rate 4.0 01/02/18 01/02/18 01/02/18 01/02/18 09:21 09:41 09:44 10:00 Pulse 132 117 Resp 24 5 B/P (MAP) 121/80 (94) 153/138 (143) Pulse Ox 98 100 01/02/18 01/02/18 01/02/18 01/02/18 10:01 10:21 10:30 10:41 Pulse 137 120 115 Resp 14 24 B/P (MAP) 160/109 (126) 01/02/18 01/02/18 01/02/18 01/02/18 10:46 11:00 11:01 11:16 Pulse 103 116 136 Resp 18 13 9 B/P (MAP) 136/109 (118) Pulse Ox 93 86 100 Physical Exam General/Constitutional: Patient is awake, confused in no acute respiratory distress Head: Normocephalic and atraumatic. Eyes: Conjunctival clear, Pupils are equal and reactive to light. Patient has a fixed leftward gaze Ears:External canals are clear. Tympanic membranes are clear with normal landma rks and light reflex. Nares: No rhinorrhea or bleeding. Turbinates are pink and moist. Oropharyngeal: Mucous membranes are moist. There is no pharyngeal erythema or exudate. There are no palatal petechiae. Uvula is midline and symmetrical. Neck: Supple, no adenopathy. Cardiovascular: R is tachycardic and irregularly irregular Pulmonary: Lungs are clear to auscultation bilaterally. There are no wheezes, rales, or rhonchi. Chest rise is symmetrical Abdomen: Soft, nontender, no guarding or peritoneal signs. Extremities: No gross deformities, No peripheral cyanosis. Able to move all 4 extremities. Neuro: Awake with confusion patient seems to be slumping towards her left side has some right-sided neglect Skin: No rashes, skin is warm dry and well perfused. Rectal exam: Normal tone no gross blood NIH Stroke Scale: 12 Level of consciousness: Alert -0 Answers 0 questions correctly-2 Performs both tasks correctly-0 Best Gaze: Partial gaze palsy; but no foeced deviation-1 Visual: Partial hemianopsia-1 Facial Palsy: Normal, symmetrical movements-0 Motor Left Arm: Drift; limb holds but drifts downward before full 10 seconds-1 Motor Right Arm: Drift; limb holds but drifts downward before full 10 seconds-1 Motor Left Leg: Drift; limb holds but drifts downward before full 5 seconds-1 Motor Right Leg: Drift; limb holds but drifts downward before full 5 seconds-1 Limb Ataxia: Present in one limb-1 Sensory: Normal, no sensory loss-0 Best Language: Mild to moderate-1 Dysarthria: Mild to moderate dysarthria-1 Extinction and Inattention: Visual, tactile, auditory, spatial, or personal inattention or extinction to bilateral simultaneous stimulation in one sensory zone-1 Medical Decision Making Data Points Result Diagram: 01/02/18 1015 01/02/18 1015 Laboratory Hematology Test 01/02/18 10:15 01/02/18 10:25 01/02/18 11:26 Red Blood Count 2.29 M/uL (4.17-5.56) Mean Corpuscular Volume 110.0 fL (80.0-96.0) Mean Corpuscular Hemoglobin 36.6 pg (26.0-33.0) Mean Corpuscular Hemoglobin Concent 33.3 g/dL (32.0-36.0) Red Cell Distribution Width 16.2 % (11.5-14.5) Mean Platelet Volume 8.5 fL (7.2-11.1) Neutrophils (%) (Auto) 66.1 % (39.4-72.5) Lymphocytes (%) (Auto) 21.5 % (17.6-49.6) Monocytes (%) (Auto) 11.2 % (4.1-12.4) Eosinophils (%) (Auto) 0.5 % (0.4-6.7) Basophils (%) (Auto) 0.7 % (0.3-1.4) Nucleated RBC Relative Count (auto) 0.3 /100WBC Neutrophils # (Auto) 5.7 K/uL (2.0-7.4) Lymphocytes # (Auto) 1.9 K/uL (1.3-3.6) Monocytes # (Auto) 1.0 K/uL (0.3-1.0) Eosinophils # (Auto) 0.0 K/uL (0.0-0.5) Basophils # (Auto) 0.1 K/uL (0.0-0.1) Nucleated RBC Absolute Count (auto) 0.02 K/uL Peripheral Blood Smear Y/N Prothrombin Time 15.3 seconds (12.0-14.4) Prothromb Time International Ratio 1.20 Activated Partial Thromboplast Time 27 seconds (23-35) Sodium Level 137 mmol/L (137-145) Potassium Level 4.0 mmol/L (3.5-5.0) Chloride Level 102 mmol/L (98-107) Carbon Dioxide Level 26 mmol/L (22-31) Blood Urea Nitrogen 16 mg/dl (7-18) Creatinine 0.80 mg/dl (0.52-1.04) Glomerular Filtration Rate Calc > 60.0 Random Glucose 103 mg/dl (75-110) Lactate 1.1 mmol/L (0.7-2.1) Calcium Level 8.7 mg/dl (8.4-10.2) Total Bilirubin 0.5 mg/dl (0.2-1.3) Aspartate Amino Transf (AST/SGOT) 27 U/L (0-35) Alanine Aminotransferase (ALT/SGPT) 18 U/L (0-56) Alkaline Phosphatase 75 U/L (0-126) Ammonia 10 UMOL/L (9-33) Troponin I 0.015 ng/ml B-Type Natriuretic Peptide 996 pg/ml (0-100) Total Protein 6.9 g/dl (6.3-8.2) Albumin 3.2 g/dl (3.5-5.0) Urine Color Yellow Urine Clarity Clear Urine pH 5.0 pH (4.8-9.5) Urine Specific [place] 1.025 Urine Protein 30 mg/dL (NEGATIVE) Urine Glucose (UA) Negative mg/dL (NEGATIVE) Urine Ketones Trace mg/dL (NEGATIVE) Urine Blood Negative (NEGATIVE) Urine Nitrite Negative (NEGATIVE) Urine Bilirubin Negative (NEGATIVE) Urine Urobilinogen 4.0 mg/dL (0.2-1.9) Urine Leukocyte Esterase Negative (NEGATIVE) Urine RBC None /HPF (0-2/HPF) Urine WBC 3 /HPF (0-5/HPF) Urine Squamous Epithelial Cells Few /LPF (NONE-FEW) Urine Calcium Oxalate Crystals Few /HPF (NONE) Urine Bacteria Negative /HPF (NONE-FEW) Urine Hyaline Casts Few /LPF (NONE-FEW) Urine Mucus Few /HPF (NONE-FEW) Chemistry Test 01/02/18 10:15 01/02/18 10:25 01/02/18 11:26 White Blood Count 8.6 k/uL (4.5-11.0) Red Blood Count 2.29 M/uL (4.17-5.56) Hemoglobin 8.4 g/dL (12.0-16.0) Hematocrit 25.2 % (34.0-47.0) Mean Corpuscular Volume 110.0 fL (80.0-96.0) Mean Corpuscular Hemoglobin 36.6 pg (26.0-33.0) Mean Corpuscular Hemoglobin Concent 33.3 g/dL (32.0-36.0) Red Cell Distribution Width 16.2 % (11.5-14.5) Platelet Count 233 K/uL (150-450) Mean Platelet Volume 8.5 fL (7.2-11.1) Neutrophils (%) (Auto) 66.1 % (39.4-72.5) Lymphocytes (%) (Auto) 21.5 % (17.6-49.6) Monocytes (%) (Auto) 11.2 % (4.1-12.4) Eosinophils (%) (Auto) 0.5 % (0.4-6.7) Basophils (%) (Auto) 0.7 % (0.3-1.4) Nucleated RBC Relative Count (auto) 0.3 /100WBC Neutrophils # (Auto) 5.7 K/uL (2.0-7.4) Lymphocytes # (Auto) 1.9 K/uL (1.3-3.6) Monocytes # (Auto) 1.0 K/uL (0.3-1.0) Eosinophils # (Auto) 0.0 K/uL (0.0-0.5) Basophils # (Auto) 0.1 K/uL (0.0-0.1) Nucleated RBC Absolute Count (auto) 0.02 K/uL Peripheral Blood Smear Y/N Prothrombin Time 15.3 seconds (12.0-14.4) Prothromb Time International Ratio 1.20 Activated Partial Thromboplast Time 27 seconds (23-35) Glomerular Filtration Rate Calc > 60.0 Lactate 1.1 mmol/L (0.7-2.1) Calcium Level 8.7 mg/dl (8.4-10.2) Total Bilirubin 0.5 mg/dl (0.2-1.3) Aspartate Amino Transf (AST/SGOT) 27 U/L (0-35) Alanine Aminotransferase (ALT/SGPT) 18 U/L (0-56) Alkaline Phosphatase 75 U/L (0-126) Ammonia 10 UMOL/L (9-33) Troponin I 0.015 ng/ml B-Type Natriuretic Peptide 996 pg/ml (0-100) Total Protein 6.9 g/dl (6.3-8.2) Albumin 3.2 g/dl (3.5-5.0) Urine Color Yellow Urine Clarity Clear Urine pH 5.0 pH (4.8-9.5) Urine Specific [place] 1.025 Urine Protein 30 mg/dL (NEGATIVE) Urine Glucose (UA) Negative mg/dL (NEGATIVE) Urine Ketones Trace mg/dL (NEGATIVE) Urine Blood Negative (NEGATIVE) Urine Nitrite Negative (NEGATIVE) Urine Bilirubin Negative (NEGATIVE) Urine Urobilinogen 4.0 mg/dL (0.2-1.9) Urine Leukocyte Esterase Negative (NEGATIVE) Urine RBC None /HPF (0-2/HPF) Urine WBC 3 /HPF (0-5/HPF) Urine Squamous Epithelial Cells Few /LPF (NONE-FEW) Urine Calcium Oxalate Crystals Few /HPF (NONE) Urine Bacteria Negative /HPF (NONE-FEW) Urine Hyaline Casts Few /LPF (NONE-FEW) Urine Mucus Few /HPF (NONE-FEW) Coagulation Test 01/02/18 10:15 Prothrombin Time 15.3 seconds Prothromb Time International Ratio 1.20 Activated Partial Thromboplast Time 27 seconds Urinalysis Test 01/02/18 10:25 Urine Color Yellow Urine Clarity Clear Urine pH 5.0 pH (4.8-9.5) Urine Specific [place] 1.025 Urine Protein 30 mg/dL (NEGATIVE) Urine Glucose (UA) Negative mg/dL (NEGATIVE) Urine Ketones Trace mg/dL (NEGATIVE) Urine Blood Negative (NEGATIVE) Urine Nitrite Negative (NEGATIVE) Urine Bilirubin Negative (NEGATIVE) Urine Urobilinogen 4.0 mg/dL (0.2-1.9) Urine Leukocyte Esterase Negative (NEGATIVE) Urine RBC None /HPF (0-2/HPF) Urine WBC 3 /HPF (0-5/HPF) Urine Squamous Epithelial Cells Few /LPF (NONE-FEW) Urine Calcium Oxalate Crystals Few /HPF (NONE) Urine Bacteria Negative /HPF (NONE-FEW) Urine Hyaline Casts Few /LPF (NONE-FEW) Urine Mucus Few /HPF (NONE-FEW) EKG/Imaging EKG Interpretation EKG shows atrial flutter with variable block with tachycardia rate between 128 a nd 1 32 bpm. Monitor Interpretation: Atrial Flutter (with variable block and RVR) Imaging FACILITY: [facility] PATIENT NAME: Sangeeta Esparza : 1930 MR: [id number] V: [id number] EXAM DATE: ORDERING PHYSICIAN: MARTHA JORGE TECHNOLOGIST: Location: [facility] [place] Patient: Sangeeta Esparza : 1930 Visit/Account:[id number] Date of Sevice: 01/02/2018 EXAMINATION: CT Head without intravenous contrast HISTORY: Altered mental status. Left-sided weakness. TECHNIQUE: Axial images were obtained from the skull base to the vertex without intravenous contrast. Sagittal and coronal reformatted images are also submitted. One of the following dose optimization techniques was utilized in the performance of this exam: Automated exposure control; adjustment of the mA and/or kV according to the patient's size; or use of an iterative reconstruction technique. Specific details can be referenced in the facility's radiology CT exam operational policy. COMPARISON: Noncontrast head CT dated 11/22/2017. FINDINGS: Brain volume: Mild to moderate generalized brain parenchymal volume loss. Ventricles: Stable ventricular size. Acute ischemic changes: None. Hemorrhage: None. Masses / edema: None. Rodriguez-white: Negative. White matter: Stable mild to moderate chronic microvascular ischemic changes. Vessels: Negative. Extra-axial: Negative. Calvarium / skull base: Numerous small lytic lesions suspicious for metastasis or multiple myeloma. Visualized sinuses / orbits: Negative. IMPRESSION: 1. No acute intracranial abnormality. 2. Multiple small lytic lesions in the skull suspicious for metastasis or multiple myeloma. Report Dictated By: Jona Finch MD at 01/02/2018 9:05 AM Report E-Signed By: Jona Finch MD at 01/02/2018 9:11 AM WSN:[email or web address] FACILITY: [facility] PATIENT NAME: Sangeeta Esparza : 1930 MR: [id number] V: [id number] EXAM DATE: ORDERING PHYSICIAN: MARTHA JORGE TECHNOLOGIST: Location: [facility] [place] Patient: Sangeeta Esparza : 1930 Visit/Account:[id number] Date of Sevice: 01/02/2018 EXAMINATION: CT Head without intravenous contrast HISTORY: Altered mental status. Left-sided weakness. TECHNIQUE: Axial images were obtained from the skull base to the vertex without intravenous contrast. Sagittal and coronal reformatted images are also submitted. One of the following dose optimization techniques was utilized in the performance of this exam: Automated exposure control; adjustment of the mA and/or kV according to the patient's size; or use of an iterative reconstruction technique. Specific details can be referenced in the facility's radiology CT exam operational policy. COMPARISON: Noncontrast head CT dated 11/22/2017. FINDINGS: Brain volume: Mild to moderate generalized brain parenchymal volume loss. Ventricles: Stable ventricular size. Acute ischemic changes: None. Hemorrhage: None. Masses / edema: None. Rodriguez-white: Negative. White matter: Stable mild to moderate chronic microvascular ischemic changes. Vessels: Negative. Extra-axial: Negative. Calvarium / skull base: Numerous small lytic lesions suspicious for metastasis or multiple myeloma. Visualized sinuses / orbits: Negative. IMPRESSION: 1. No acute intracranial abnormality. 2. Multiple small lytic lesions in the skull suspicious for metastasis or multiple myeloma. Report Dictated By: Jona Finch MD at 01/02/2018 9:05 AM Report E-Signed By: Jona Finch MD at 01/02/2018 9:11 AM WSN:[email or web address] ED Course/Re-evaluation Clinical Indication for ER IV: IV Access ED Course 01/02/2018 9:47:41 am patient with confusion, some inattention to the right side along with global motor weakness of unclear etiology. Plan at this time will be infectious, cardiovascular, metabolic, stroke workup. Prehospital blood sugar was 90. Patient was sent for stat CT of the head which was unremarkable for acute stroke or bleeding. Thrombolytics were considered however given the duration of symptoms being longer than 4.5 hours patient is no longer a candidate for thrombolytics. Into needle or workup at this time. 01/02/2018 11:39:30 am workup does show a decreasing hemoglobin and hematocrit over the past 2 months. A occult stool was sent for blood which is currently pending at time of disposition. I had a 10 minute discussion with the family with regard to patient's desires and it was decided that because of her symptoms and concern for suspected stroke she should be transferred to a higher level of care. I did speak with from [facility] [place] who is accepted the patient for workup. History physical exam all pertinent lab and imaging studies were done. recommend load of digoxin to control heart rate without dropping blood pressure. The patient's total loading dose for dig based on a range of 10-15 mcg/kg would be thousand micrograms or 1 mg doses instructions would be to give 50% of the total loading dose now which would be 500 g. She will subsequently received the remaining dig load at [facility]. He was also asked to have the patient get 324 of aspirin which we will do. Family and patient were made aware of transfer and had no questions or concerns at time of disposition. Decision to Disposition Date: Jan 02, 2018 Decision to Disposition Time: 11:41 Depart Departure Latest Vital Signs Vital Signs Date Time Temp Pulse Resp B/P (MAP) Pulse Ox O2 Delivery O2 Flow Rate FiO2 01/02/18 11:16 136 9 100 01/02/18 11:00 136/109 (118) 01/02/18 08:41 4.0 01/02/18 08:41 98.2 Nasal Cannula Impression: Primary Impression: Stroke Additional Impression: Confusion Condition: Improved Disposition: XFER TO ACUTE CARE HOSP[facility] (to Dr Klein at [facility]) Referrals: FREDI JENKINS MD (PCP) Problem Qualifiers Primary Impression: Stroke CVA mechanism: unspecified Qualified Codes: I63.9 - Cerebral infarction, unspecified MARTHA JORGE MD Jan 02, 2018 09:00
--- NOTE | 2018-01-02 09:05 | EKG ---
FACILITY[place] [facility] [place] PATIENT NAME: BRIGIDA LOWERY : [id number] MR: [id number] V: [id number] EXAM DATE: ORDERING PHYSICIAN: MARTHA JORGE TECHNOLOGIST: REGINA Tanner Reason : AMS Blood Pressure : / mmHG Vent. Rate : 132 BPM Atrial Rate : 366 BPM P-R Int : 000 ms QRS Dur : 088 ms QT Int : 328 ms P-R-T Axes : 000 -30 187 degrees QTc Int : 485 ms Atrial flutter with variable AV block Left axis deviation Nonspecific ST-T findings Artifact in several leads - repeat if needed Abnormal ECG Confirmed by DARRIN LATHAM ([id number]) on 01/02/2018 11:46:24 AM Referred By: LUISITO Confirmed By:DARRIN LATHAM
--- NOTE | 2018-01-02 09:15 | RADIOLOGY IMAGING REPORT ---
FACILITY: [facility] [place] PATIENT NAME: Sangeeta Esparza : 1930 MR: [id number] V: [id number] EXAM DATE: ORDERING PHYSICIAN: MARTHA JORGE TECHNOLOGIST: Location: [facility] Patient: Sangeeta Esparza : 1930 Visit/Account:[id number] Date of Sevice: 01/02/2018 EXAMINATION: CT Head without intravenous contrast HISTORY: Altered mental status. Left-sided weakness. TECHNIQUE: Axial images were obtained from the skull base to the vertex without intravenous contrast . Sagittal and coronal reformatted images are also submitted. One of the following dose optimization techniques was utilized in the performance of this exam: Autom ated exposure control; adjustment of the mA and/or kV according to the patient's size; or use of an i terative reconstruction technique. Specific details can be referenced in the facility's radiology C T exam operational policy. COMPARISON: Noncontrast head CT dated 11/22/2017. FINDINGS: Brain volume: Mild to moderate generalized brain parenchymal volume loss. Ventricles: Stable ventricular size. Acute ischemic changes: None. Hemorrhage: None. Masses / edema: None. Rdoriguez-white: Negative. White matter: Stable mild to moderate chronic microvascular ischemic changes. Vessels: Negative. Extra-axial: Negative. Calvarium / skull base: Numerous small lytic lesions suspicious for metastasis or multiple myeloma. Visualized sinuses / orbits: Negative. IMPRESSION: 1. No acute intracranial abnormality. 2. Multiple small lytic lesions in the skull suspicious for metastasis or multiple myeloma. Report Dictated By: Jona Finch MD at 01/02/2018 9:05 AM Report E-Signed By: Jona Finch MD at 01/02/2018 9:11 AM WSN:[id number]
--- NOTE | 2018-01-02 09:15 | RADIOLOGY IMAGING REPORT ---
FACILITY: [facility] PATIENT NAME: Sangeeta Esparza : 1930 MR: [id number] V: [id number] EXAM DATE: ORDERING PHYSICIAN: MARTHA JORGE TECHNOLOGIST: Location: [facility] [place], [place] Patient: Sangeeta Esparza : 1930 Visit/Account:[id number] Date of Sevice: 01/02/2018 EXAMINATION: Chest radiograph HISTORY: Altered mental status COMPARISON: None. FINDINGS: The cardiac silhouette is moderately enlarged as before. There is rotation towards the left. Unchan ged dual-lead pacemaker. No pneumothorax. Mild patchy groundglass opacification throughout the righ t central lung and in the left midlung. No acute osseous abnormality. IMPRESSION: Findings suggestive of mild pulmonary edema. Report Dictated By: Isaias Hernandez MD at 01/02/2018 9:10 AM Report E-Signed By: Isaias Hernandez MD at 01/02/2018 9:12 AM WSN:[id number]
[2018-01-02 10:37] LABS: PLATELET COUNT, AUTOMATED 233 K/uL (150-450)
[2018-01-02 10:38] LABS: INR 1.2
[2018-01-02] MEDS ORDERED: DILT120C4 PO (11:15)
[2018-01-02] MEDS ORDERED: LISI5TAB25 PO (11:15)
[2018-01-02] MEDS ORDERED: LORA-629 PO (11:15)
[2018-01-02] MEDS ORDERED: DULO20CA3 PO (11:15)
[2018-01-02] MEDS ORDERED: ALBU2.5V36 INH (11:15)
[2018-01-02] MEDS ORDERED: MULT-820 PO (11:15)
[2018-01-02] MEDS ORDERED: FURO-47 PO (11:15)
[2018-01-02] MEDS ORDERED: RIVA20TA PO (11:15)
[2018-01-02] MEDS ORDERED: DOCU-416 PO (11:15)
[2018-01-02] MEDS ORDERED: CITA-157 PO (11:15)
[2018-01-02] MEDS ORDERED: ASPI81TA94 PO (11:15)
[2018-01-02] MEDS ORDERED: POTA20TA94 PO (11:15)
[2018-01-02] MEDS ORDERED: DIGOXIN 0.5 MG/2 ML AMP IVP ONE ×2 (11:30→11:35)
[2018-01-02] MEDS ORDERED: ASPIRIN 81 MG CHEW PO ONE (11:35)
[2018-01-02 12:37] VITALS: BP 147/119
== END 2018-01-02 12:58 | disposition short-term general hospital (02) ==
LOC: ER 08:46
DX: I63.9 Cerebral infarction, unspecified (principal)
CPT/HCPCS: 36415; 70450; 71045; 81001; 82140; 82274; 83605; 83880; 84484; 85025; 85610; 85730; 87040; 87088; 93005; 96361; 96374; 99285; A9270; C1758; J1160; J7040; 82040; 82247; 82310; 82374; 82435; 82565; 82947; 84075; 84132; 84155; 84295; 84450; 84460; 84520

== ENCOUNTER → 2018-01-02 | Outpatient (CLI) | payer MEDICARE, MEDICAID ==
[2017-11-23 08:57] VITALS: BMI 34.8
[~2018-01-02] MED LIST changes: +ALBU2.5V36 INH; +ASPI81TA94 PO; +CITA-157 PO; +DILT120C4 PO; +DOCU-416 PO; +DULO20CA3 PO; +MULT-820 PO; +SULF-198 PO
== END ==
LOC: AMB 12:46
PROVIDERS: ATTEND Nurse Practitioner
DX: R40.4 Transient alteration of awareness (principal); R53.1 Weakness
CPT/HCPCS: A0425; A0426

== ENCOUNTER → 2018-01-02 | Outpatient (CLI) | payer MEDICARE, MEDICAID ==
[2017-11-23 08:57] VITALS: BMI 34.8
== END ==
LOC: AMB 08:17
PROVIDERS: ATTEND Nurse Practitioner
DX: R40.4 Transient alteration of awareness (principal); R53.1 Weakness; R41.0 Disorientation, unspecified; R26.81 Unsteadiness on feet
CPT/HCPCS: A0425; A0427

== ENCOUNTER 2018-01-17 13:54 | Outpatient (RCR) | payer MEDICARE, MEDICAID, OTHER ==
[2017-11-23 08:57] VITALS: Ht 154.9 cm
[2017-11-29 09:57] VITALS: BP 145/90
[2017-11-29 11:50] LABS: PLATELET COUNT, AUTOMATED 199 K/uL (150-450)
--- NOTE | 2017-11-29 17:17 | ONCOLOGY CONSULTATION ---
EVENT DATE: November 29, 2017 REFERRING PHYSICIAN Rozina Duran MD REASON FOR CONSULTATION Evaluation and management of possible multiple myeloma. ONCOLOGY HISTORY Patient is an 87-year-old female who was admitted recently to the hospital after a fall with multiple acute compression fractures. Patient had CT abdomen and pelvis on November 23, 2017 which showed new compression fractures in the lower thoracic and upper lumbar spine. She had C-spine CT scan done on November 23, 2017 which showed multiple lytic lesions. The lumbar spine CT scan on November 23, 2017 showed new compression deformities in the lower thoracic and upper lumbar spine. Patient had a serum protein immunoelectrophoresis which showed monoclonal protein at 2.31 g/dL. No immunofixation was done. She was found to have high ferritin at 1030. Total protein was high at 8.5. Her ESR was 50. CBC showed white count 9.7, hemoglobin 11.2, hematocrit 32.1, platelets 155, 000. PAST MEDICAL HISTORY 1. Parkinson disease on treatment. 2. Atrial fibrillation. 3. Congestive heart failure. 4. Hypertension. 5. Pacemaker placement. 6. Sleep apnea. 7. Depression. PAST SURGICAL HISTORY 1. Pacemaker placement. 2. Cholecystectomy. 3. Hysterectomy. 4. Carpal tunnel release surgery. SOCIAL HISTORY The patient is a with three children. She is retired from working at [employer]. She quit tobacco 60 years ago. Denies any abuse of alcohol or illicit drugs. FAMILY HISTORY Mother had some sort of cancer. Daughter had ovarian cancer at age 36. MEDICATIONS 1. Lidocaine patches for back pain. 2. Lactulose reduced food. 3. Tylenol p.r.n. 4. Duloxetine 40 mg daily. 5. Tramadol 50 mg q.6 hourly p.r.n. 6. Voltaren gel topically three times daily. 7. Metoprolol 50 mg b.i.d. 8. Triamcinolone acetonide 0.1% cream b.i.d. 9. Carbidopa/levodopa 25/100 one tablet b.i.d. 10. Ferrous sulfate 325 mg one tablet daily. 11. Zantac 150 mg daily. 12. Ascorbic acid 500 mg daily. 13. Preservision one tablet b.i.d. 14. Oxygen 4L per minute. 15. Xarelto. 16. Levothyroxine 50 mcg daily. ALLERGIES 1. CODEINE, made her confused, weak with poor balance. 2. HYDROMORPHONE, made her shaky. 3. MILK causes upset stomach. REVIEW OF SYSTEMS CONSTITUTIONAL: No appetite or weight change. No fever, chills. She has sweating sometimes. No recent infection. HEENT: Ears: No tinnitus or hearing problem. Nose: She has nasal discharge and occasional epistaxis. Throat: No sore throat or mouth ulcers. Eyes: No diplopia or visual changes. RESPIRATORY: She has cough with white phlegm. No hemoptysis. She is short winded. She is on home oxygen all the time. CARDIOVASCULAR: No chest pain, orthopnea, or paroxysmal nocturnal dyspnea (PND) . No edema. No palpitations. GASTROINTESTINAL: No nausea or vomiting. No diarrhea. She has constipation. No change in bowel movements. No heartburn or swallowing difficulties. No abdominal pain. No jaundice. No hematemesis, melena or rectal bleeding. GENITOURINARY: No hematuria or dysuria. MUSCULOSKELETAL: She has pain in her back and knees. NEUROLOGICAL: She has tingling and numbness in the hands. She has also occasional headache. HEMATOLOGIC/LYMPHATIC: No bleeding. She bruises easily. She is weak, tired and fatigued. No enlarged lymph nodes. SKIN: No skin rash or lumps. PSYCHIATRIC: No anxiety or depression. PHYSICAL EXAMINATION GENERAL: Looks stable. Well-developed, well-nourished, and in no acute distress. VITAL SIGNS: Blood pressure 145/90, pulse 95 per minute, respirations 16 per minute, temperature 98.8. HEENT: Head: Atraumatic. No sinus tenderness to palpation. Eyes: No icterus or conjunctivitis. Mouth and Throat: No oral thrush or mucositis. NECK: Supple. No cervical or supraclavicular lymphadenopathy. LUNGS: Clear to auscultation and percussion bilaterally. HEART: Regular rate and rhythm. No gallops, murmurs, clicks or rubs. ABDOMEN: Soft and lax. No tenderness. No hepatosplenomegaly. No masses. EXTREMITIES: There is mild pedal edema. No cyanosis, clubbing. LYMPHATICS: No peripheral lymphadenopathy. NEUROLOGICAL: Conscious, alert and oriented times three. No focal motor or sensory deficits. PSYCHIATRIC: Mood and affect appear normal. SKIN: No skin rash, bruise or purpuric eruption. ASSESSMENT 1. 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 Patient has also multiple lytic lesions in the cervical spine by the CT scan of the cervical spine done on November 23, 2017. She had also multiple acute compression fractures of the lower thoracic and upper lumbar spine by CT abdomen and pelvis and lumbar spine CT scan done on November 23, 2017. Given the abnormal protein and the presence of lytic lesions, this will make the diagnosis of multiple myeloma. I am planning to check CBC, chem panel, LDH, uric acid. I am planning also to check myeloma profile including beta-2 microglobulin, serum protein immunoelectrophoresis and free light chain assay. I am planning to also do a bone marrow biopsy to complete the workup for the multiple myeloma. Given her age and general condition, I believe the patient would be a good candidate for CyBorD regimen with cyclophosphamide orally, Decadron orally and Velcade subcutaneously. I am planning to see the patient after the above to start her chemotherapy. I had a long discussion with the patient and her family. They are agreeable with the plan of management. 2. Acute compression fracture of the lower thoracic and upper lumbar spine. I am planning to refer the patient to a spinal surgeon for possible kyphoplasty if indicated. 3. Atrial fibrillation, on Xarelto. PLAN 1. Referral to Dr. Hutchinson for bone marrow biopsy. 2. Referral to spine surgeon for possible kyphoplasty for the acute vertebral fractures. 3. CBC, chem panel, LDH, uric acid and myeloma profile. 4. Bone marrow biopsy. 5. Patient to return after the above for further evaluation and management and to possibly start treatment with CyBorD chemotherapy. 6. Patient is to contact us for any new concerns or complaints. MTDD
[~2018-01-17 13:54] MED LIST changes: +ALBU2.5V36 INH; +ASPI81TA94 PO; +CITA-157 PO; +DILT120C4 PO; +DOCU-416 PO; +DULO20CA3 PO; -HYDR-4309 PO; +HYDR-653 PO; +MULT-820 PO
[2018-01-17 14:07] VITALS: BP 114/71
--- NOTE | 2018-01-17 18:37 | ONCOLOGY FOLLOW UP NOTE ---
EVENT DATE: January 17, 2018 DIAGNOSIS: Multiple myeloma. CHIEF COMPLAINT Patient is here today for followup of her multiple myeloma. ONCOLOGY HISTORY Patient is an 87-year-old female who was admitted recently to the hospital after a fall with multiple acute compression fractures. Patient had CT abdomen and pelvis on November 23, 2017 which showed new compression fractures in the lower thoracic and upper lumbar spine. She had C-spine CT scan done on November 23, 2017 which showed multiple lytic lesions. The lumbar spine CT scan on November 23, 2017 showed new compression deformities in the lower thoracic and upper lumbar spine. Patient had a serum protein immunoelectrophoresis which showed monoclonal protein at 2.31 g/dL. No immunofixation was done. She was found to have high ferritin at 1030. Total protein was high at 8.5. Her ESR was 50. CBC showed white count 9.7, hemoglobin 11.2, hematocrit 32.1, platelets 155,000. Bone marrow aspiration biopsy done on December 27, 2017 came back positive for 90% lambda positive plasma cells in the bone marrow. FISH was positive for 1q, +5, 11q+, 20q-, consistent with complex karyotype associated with high risk disease. HISTORY OF PRESENT ILLNESS Patient is here today for followup of her multiple myeloma and discussion of the results of her bone marrow and plan of management. She is complaining of back pain. Patient had a stroke two weeks ago, with left-sided weakness, currently on rehab. PAST MEDICAL HISTORY 1. Parkinson disease on treatment. 2. Atrial fibrillation. 3. Congestive heart failure. 4. Hypertension. 5. Pacemaker placement. 6. Sleep apnea. 7. Depression. PAST SURGICAL HISTORY 1. Pacemaker placement. 2. Cholecystectomy. 3. Hysterectomy. 4. Carpal tunnel release surgery. SOCIAL HISTORY The patient is a with three children. She is retired from working at [employer]. She quit tobacco 60 years ago. Denies any abuse of alcohol or illicit drugs. FAMILY HISTORY Mother had some sort of cancer. Daughter had ovarian cancer at age 36. MEDICATIONS 1. Lidocaine patches for back pain. 2. Lactulose reduced food. 3. Tylenol p.r.n. 4. Duloxetine 40 mg daily. 5. Tramadol 50 mg q.6 hourly p.r.n. 6. Voltaren gel topically three times daily. 7. Metoprolol 50 mg b.i.d. 8. Triamcinolone acetonide 0.1% cream b.i.d. 9. Carbidopa/levodopa 25/100 one tablet b.i.d. 10. Ferrous sulfate 325 mg one tablet daily. 11. Zantac 150 mg daily. 12. Ascorbic acid 500 mg daily. 13. Preservision one tablet b.i.d. 14. Oxygen 4L per minute. 15. Xarelto. 16. Levothyroxine 50 mcg daily. ALLERGIES 1. CODEINE, made her confused, weak with poor balance. 2. HYDROMORPHONE, made her shaky. 3. MILK causes upset stomach. REVIEW OF SYSTEMS CONSTITUTIONAL: No appetite or weight change. No fever, chills or sweating. No recent infection. HEENT: Ears: No tinnitus or hearing problem. Nose: No nasal discharge or epistaxis. Throat: No sore throat or mouth ulcers. Eyes: No diplopia or visual changes. RESPIRATORY: No shortness of breath. No cough, expectoration or hemoptysis. CARDIOVASCULAR: No chest pain, orthopnea, or paroxysmal nocturnal dyspnea (PND). No edema. No palpitations. GASTROINTESTINAL: No nausea or vomiting. No diarrhea or constipation. No change in bowel movements. No heartburn or swallowing difficulties. No abdominal pain. No jaundice. No hematemesis, melena or rectal bleeding. GENITOURINARY: No hematuria or dysuria. MUSCULOSKELETAL: She has back pain. NEUROLOGICAL: No headaches or convulsions. She has left-sided hemiparesis from her recent stroke. HEMATOLOGIC/LYMPHATIC: No bleeding or easy bruising. No weakness or fatigue. No enlarged lymph nodes. SKIN: No skin rash or lumps. PSYCHIATRIC: No anxiety or depression. PHYSICAL EXAMINATION GENERAL: Looks stable. Well-developed, well-nourished, and in no acute distress. VITAL SIGNS: Blood pressure 114/71, pulse 88 per minute, respirations 16 per minute, temperature 96.5, pulse ox 98% on room air. HEENT: Head: Atraumatic. No sinus tenderness to palpation. Eyes: No icterus or conjunctivitis. Mouth and Throat: No oral thrush or mucositis. NECK: Supple. No cervical or supraclavicular lymphadenopathy. LUNGS: Clear to auscultation and percussion bilaterally. HEART: Regular rate and rhythm. No gallops, murmurs, clicks or rubs. ABDOMEN: Soft and lax. No tenderness. No hepatosplenomegaly. No masses. EXTREMITIES: There is mild pedal edema. No cyanosis, clubbing. LYMPHATICS: No peripheral lymphadenopathy. NEUROLOGICAL: Conscious, alert and oriented times three. She has mild weakness on the left side with facial drooping. PSYCHIATRIC: Mood and affect appear normal. SKIN: No skin rash, bruise or purpuric eruption. DIAGNOSTIC DATA Bone marrow aspiration biopsy done on December 27, 2017 came back positive for multiple myeloma with 90% lambda positive plasma cells in the bone marrow. FISH came back positive for 1q+, +5, 11q+, 20q-, consistent with complex karyotype associated with high risk disease. ASSESSMENT 1. Multiple myeloma with monoclonal protein at 2.31 g/dL and multiple lytic lesions in the cervical spine by CT scan of the cervical spine done November 23, 2017. She had multiple acute compression fractures of the lower thoracic and upper lumbar spine by CT abdomen and pelvis and lumbar spine CT scan done on November 23, 2017. Bone marrow aspiration biopsy done December 27, 2017 was positive for multiple myeloma with 90% lambda positive plasma cells. FISH came back positive for 1q+, +5, 11q+ and 20q-, consistent with complex karyotype associated with high risk disease. I had a long discussion with the patient and her family today regarding further management including chemotherapy with CyBorD with cyclofosfamide, Velcade and Decadron. Hospice option was also discussed with the patient given her age and the recent stroke. Patient would like to have two more days to think about what she wants to do for herself, and her family are agreeable with that. If the patient decided to go for chemo I would treat her with CyBorD regimen, but if not going to have any treatment for her multiple myeloma, then I will consider hospice care. For bone metastasis I am planning also to start and continue Xgeva to strengthen her bones. 2. Atrial fibrillation, on Xarelto. PLAN 1. Await the patient's decision about further management. 2. Consider hospice care if the patient refuses to have chemotherapy. 3. If patient agrees to have chemotherapy, I will treat her CyBorD chemotherapy with cyclofosfamide and Decadron orally and Velcade subcutaneously. 4. Patient is to contact us for any new concerns or complaints. [facility]
[2018-02-20] MEDS ORDERED: TRAM-420 PO (15:26)
[2018-02-20] MEDS ORDERED: RIVA15TA PO (15:37)
[2018-02-20] MEDS ORDERED: DIGO125T73 PO (15:37)
[2018-02-20] MEDS ORDERED: DULO40CA2 PO (15:37)
[2018-02-20] MEDS ORDERED: FURO-45 PO (15:37)
[2018-02-20] MEDS ORDERED: LEVE250T63 PO (15:43)
== END 2018-02-26 ==
LOC: ONC 13:54
PROVIDERS: ATTEND Internal Medicine Hematology
DX: D47.2 Monoclonal gammopathy (principal); M89.9 Disorder of bone, unspecified; L98.9 Disorder of the skin and subcutaneous tissue, unspecified; G20 Parkinson's disease; I48.91 Unspecified atrial fibrillation; I50.9 Heart failure, unspecified; I10 Essential (primary) hypertension; G47.30 Sleep apnea, unspecified; F32.9 Major depressive disorder, single episode, unspecified; Z95.0 Presence of cardiac pacemaker; Z79.01 Long term (current) use of anticoagulants; S22.000A Wedge compression fracture of unspecified thoracic vertebra, initial encounter for closed fracture; S32.000A Wedge compression fracture of unspecified lumbar vertebra, initial encounter for closed fracture; W19.XXXA Unspecified fall, initial encounter; Z87.891 Personal history of nicotine dependence
CPT/HCPCS: 36415; 82232; 83615; 83883; 84550; 85025; 86334; G0463; 82040; 82247; 82310; 82374; 82435; 82565; 82947; 84075; 84132; 84155; 84295; 84450; 84460; 84520; 99203; 99212

== ENCOUNTER → 2018-02-27 | Outpatient (CLI) | payer MEDICARE, MEDICAID, OTHER ==
[2017-11-23 08:57] VITALS: BMI 34.8
[~2018-02-27] MED LIST changes: +DIGO125T73 PO; +DULO40CA2 PO; +FURO-45 PO; +LEVE250T63 PO
== END ==
LOC: LAB 16:14
PROVIDERS: ATTEND Family Medicine
DX: R19.7 Diarrhea, unspecified (principal); R11.10 Vomiting, unspecified
CPT/HCPCS: 36415; 82040; 82247; 82310; 82374; 82435; 82565; 82947; 84075; 84132; 84155; 84295; 84450; 84460; 84520; 85027